=== PATIENT | male | born 1950 ===

== ENCOUNTER 2024-10-19 11:24 | Emergency (ER) | payer OTHER, SELFPAY ==
[2024-10-19 11:47] VITALS: BP 121/55; PULSE 66; RESP 16; TEMP 36.5; O2SAT 99; BMI 24.9
--- NOTE | 2024-10-19 11:48 | ED_ITS ---
HPI - General Adult General Chief complaint: General Medical Stated complaint: Headache, sore throat Time Seen by Provider: 10/19/24 12:39 Source: patient Mode of arrival: ambulatory Limitations: no limitations History of Present Illness ED Provider: Phill Manning HPI narrative: 74 yold male with pmh of HTN, CKD presents to the ED for swelling of lips for the past 4 days without any drooling, change in voice, chest pain, or shortness of breath. Patient states 1 weeks of sore throat. Patient states for the past 5 years every year he has one episode of swelling of lips and tongue that resolves after goinging to the ED. patient states being on lisniopril for the past 15 years. patient denies any fever or chills Related Data Previous Rx's ?Medication ?Instructions ?Recorded amlodipine 2.5 mg tablet 2.5 mg PO DAILY 20 days #20 tabs 10/19/24 diphenhydramine HCl 25 mg capsule 25 mg PO TID PRN all ergic reaction 10/19/24 (Benadryl) #15 caps epinephrine 0.3 mg/0.3 mL 0.3 mg (0.3 mL) IM Q15M PRN 10/19/24 injection, auto-injector (EpiPen) anaphylaxis #1 ea prednisone 20 mg tablet 40 mg (2 x 20 mg) PO DAILY 5 days 10/19/24 #10 tabs Allergies Allergy/AdvReac Type Severity Reaction Status Date / Time No Known Allergies Allergy Verified 10/19/24 11:53 Review of Systems 2 Review of Systems: swelling of lips Yes all other systems are reviewed and are negative PMFSH Social History Social History Smoked in Last 30 Days: No Use of substances other than those prescribed or required for medical reasons: No Advance Directives: No Advance Directives Information Provided: Yes Physical Exam ED Vital Signs: Vital Signs - 24 hr 10/19/24 11:47 10/19/24 17:02 10/19/24 17:03 Temperature 97.7 F 97.5 F 97.5 F Pulse Rate 66 65 65 Respiratory Rate 16 16 16 Blood Pressure 121/55 L 115/54 L 115/54 L Pulse Oximetry 99 98 98 Oxygen Delivery Method Room Air Room Air Room Air BMI result Body Mass Index 24.9 Const General: cooperative, healthy appearing, comfortable, no acute distress, well developed, alert, awake and Physically active Orientation/consciousness: patient oriented x3 [facility] Other: Negative for tongue or uvula swelling. negative for signs of thrush. Negative for floor swelling to indicate Driss's angina or salivary stone obstruction. Head: Yes normal to inspection, Yes No palpable skull fracture present, Yes normocephalic and Yes atraumatic Nose image: 2 1. positive for swelling without any lesions, tenderness, oral drooling, change in voice, trismus, tongue swelling, or tongue floor swelling. Patient states swelling has definitely decreased in comparison to 4 days ago. 2. positive for swelling without any lesions, tenderness, oral drooling, change in voice, trismus, tongue swelling, or tongue floor swelling. Patient states swelling has definitely decreased in comparison to 4 days ago. Eyes General: appearance normal, both eyes and all related structures Neck Neck: Yes normal visual inspection, Yes full ROM, Yes no lymphadenopathy, Yes no meningeal signs, Yes trachea midline, Yes supple, No anterior neck swelling, No positive Kernig's sign and No tender Chest Chest palpation & inspection: normal inspection of the chest and normal palpation of entire chest wall Breast/axilla palpation: normal palpation of the breasts Resp Effort & Inspection: normal respiratory effort and able to speak in complete sentences Auscultation: clear to auscultation bilaterally Cardio Jugular venous distension: no JVD Heart sounds: S1 normal heart sound present and S2 normal heart sound present GI Inspection: Yes normal to inspection Palpation (GI): Soft to palpation, not firm, nontender, no guarding and not rigid General: Yes no CVA tenderness Back/Spine/Pelvis Back: no CVA tenderness and No back tenderness Skin General skin exam: no rashes or lesions noted, elasticity normal and turgor normal Neuro General: patient oriented x3, gait normal, tone normal, moves all extremities, Normal light touch and pain sensation, no meningeal signs, no focal motor deficits, CN's II-XI intact bilaterally and normal sensation to monofilament Extrem General: Yes normal to inspection, Yes full ROM and Yes capillary refill normal Psych Appearance: grossly normal, well kempt and not disheveled Course Course Course Narrative: This is an RME: Additional HPI, ROS, PE not included below will be deferred to primary provider. RME assessment and note performed by: Pat Kruse PA-C This is a 17-iobd-wfu-male, with a hx of HTN on lisinopril, diabetes, and other medical problems (pt is a poor historian) who presents to the ER with a complaints of headache, lip swelling, tongue discoloration and sore throat x 1 week. He is speaking in full sentences under no acute distress. He denies any new medications. States that this has happened before in the past. Advised charge that he should be next to be brought back. Plan: Labs, viral swabs, strep swab, further ER eval needed Medications Administered Discontinued Medications Generic Name Dose Route Start Last Admin Trade Name Gavin PRN Reason Stop Dose Admin Diphenhydramine HCl 25 mg 10/19/24 14:50 10/19/24 15:23 Diphenhydramine Hcl 50 Mg/Ml Vial IVPUSH 10/19/24 14:51 25 mg ONCE ONE Administration Methylprednisolone Sodium Succinate 125 mg 10/19/24 15:00 10/19/24 15:23 Methylprednisolone Sod Succ 125 Mg/2 Ml Vial IVPUSH 10/19/24 15:01 125 mg ONCE ONE Administration Sodium Zirconium Cyclosilicate 10 gm 10/19/24 15:08 10/19/24 15:24 Sodium Zirconium Cyclosilicate 10 Gm Powd.Pack PO 10/19/24 15:09 10 gm ONCE ONE Administration Medical Decision Making Medical Decision Making MDM Narrative: 74-year-old male presents to ED for swelling of the upper and lower lips. Patient states improved throughout swelling over the past 4 days which she has had swelling. Patient is speaking in full sentences. negative for tongue swelling or uvula swelling. Negative for tongue discloration or thrush Negative for drooling, chest pain, neck swelling, trismus, or shortness of breath. Patient states this occurring at least once every year. Patient has been on lisinopril for long time but was never taken off by his primary care provider. Patient's provider is Zahira Ngo from [facility]. She was not able to be reached I spoke with the nurse at the Center who gave me patient's recent creatinine in July which was 1.66, BUN of 30, and GFR is 44. She states patient also follow up with Nima Moss MD from [facility] for his hypertension and diabetes. She states presently there were not available and will try to make them call the ED. I gave nurse who has [facility] ED to call back. Waiting to get paperwork from [facility] also. Patient is slightly hyperkalemic 5.6. We will do EKG and give lokelma 4:21pm: Swelling improved with Benadryl and Solu-Medrol. Case discussed with Dr. Pino who agreed with plan and recommends discontinue Lisinopril and discharge papers with amlodipine. Patient given copy of labs and EKG for for outpatient follow-up. Patient passed p.o. challenge. Providers from pharm D and [facility] never called back. Differential Diagnosis Differential Diagnoses: The differential diagnosis associated with the presentation includes (heredity angioedema, adverse drug reaction, allergic reaction) Admission/Observation Consideration of admission/observation: Escalation of care including admission/observation considered Lab Data [facility] Lab Attestation statement: I reviewed the patient's lab results. 10/19/24 12:19 10/19/24 12:19 Labs: Lab Results 10/19/24 10/19/24 Range/Units 12:19 14:38 WBC 9.6 (4.8-10.8) X10*3/uL RBC 5.05 (4.60-5.80) X10*6/uL Hgb 14.1 (14.0-18.0) g/dl Hct 44.8 (42.0-52.0) % MCV 88.7 (80.0-98.0) fL MCH 27.9 (27.0-33.0) pg MCHC 31.5 (31.0-36.0) g/dl RDW 14.5 (11.0-16.0) % Plt Count 219 (160-400) X10*3/uL MPV 10.6 (9.4-12.4) fL Immature Gran % (Auto) 0.4 (0.0-0.4) % Neut % (Auto) 63.5 (45-73) % Lymph % (Auto) 18.2 L (20-40) % [place] % (Auto) 13.2 H (2-11) % Eos % (Auto) 4.0 (0-4) % Baso % (Auto) 0.7 (0-2) % Lymph # (Auto) 1.8 (1.2-4.9) X10*3/uL [place] # (Auto) 1.3 H (0.1-1.2) X10*3/uL Eos # (Auto) 0.4 (0.0-0.4) X10*3/uL Baso # (Auto) 0.1 (0.0-0.2) X10*3/uL Abs Immat Gran (auto) 0.04 H (0.00-0.03) X10*3/uL Absolute Neuts (auto) 6.1 (2.0-8.3) x10*3/uL Absolute Nucleated RBC 0.000 (0.0-0.012) X10*3/uL Nucleated RBC % (auto) 0.0 (0.0-0.2) /100WBC Sodium 140 (135-145) mmol/L Potassium 5.6 H (3.3-5.1) mmol/L Chloride 107 (96-108) mmol/L Carbon Dioxide 26 (22-29) mmol/L Anion Gap 13 (12-20) BUN 42 H (9-16) mg/dL Creatinine 1.95 H (0.5-1.4) mg/dL Estim Creat Clear Calc 28.6 Estimated GFR 34 POC Glucose 105 (60-115) mg/dL Random Glucose 191 H (60-115) mg/dL Calcium 9.4 (8.4-10.2) mg/dL Magnesium 2.5 (1.6-2.6) mg/dL Total Bilirubin 0.4 (0.0-1.0) mg/dL Direct Bilirubin 0.2 (0.0-0.5) mg/dL AST 28 (5-37) U/L ALT 47 H (0-40) U/L Alkaline Phosphatase 89 (39-117) U/L Total Protein 7.3 (6.5-8.0) g/dL Albumin 4.4 (3.5-5.0) g/dL Influenza Type A (PCR) NEGATIVE (Negative) Influenza Type B (PCR) NEGATIVE (Negative) RSV RNA Qual (PCR) NEGATIVE (Negative) SARS-CoV-2 RNA (RT-PCR) NEGATIVE (Negative) S. pyogenes GrpA JARVIS Negative (Negative) Independent Interpretation I performed an independent interpretation of an: EKG (SInus rhythm with 1st degree AV block with bifasicular block) and CT Scan Radiology Impression Discussion of test interpretation with radiology: I have reviewed the radiologist's reading. Independent Historian Clinical information obtained from an independent historian. History obtained from or confirmed by: Spouse and Other (patient) Prescription Management I considered prescription management with: Other Discharge Plan Discharge Clinical Impression: Angioedema, Angioedema due to angiotensin converting enzyme inhibitor (KEVIN-I), Acute hyperkalemia Patient Disposition: Home, Self-Care Instructions: Potassium Content of Foods List (ED), Hyperkalemia (ED), Angioedema (ED) Additional Instructions: Recommend stop taking lisinopril. It has been known to cause swelling of the lips and tongue. You will be discharged with amlodipine. You will be discharged with Benadryl steroids and Pepcid. You will be given copy of labs for follow up with your primary care for your appointment on 10/21/24. Recommend calling them for earlier appointment. Return to the ED immediately for any chest pain, shortness of breath, drooling, change in voice, fever, chills, tongue swelling, neck swelling, lip swelling, sensation of throat closing, inability to tolerate solids/liquids or any other concerning symptoms. Prescriptions: New amlodipine 2.5 mg tablet 2.5 mg PO DAILY 20 Days Qty: 20 0RF diphenhydramine HCl [Benadryl] 25 mg capsule 25 mg PO TID PRN (Reason: allergic reaction) Qty: 15 0RF prednisone 20 mg tablet 40 mg PO DAILY 5 Days Qty: 10 0RF epinephrine [EpiPen] 0.3 mg/0.3 mL auto-injector 0.3 mg IM Q15M PRN (Reason: anaphylaxis) Qty: 1 0RF Rx Instructions: for 2 doses. inject into thigh Referrals: Zahira Ngo PA-C [Primary Care Provider, Internal Medicine] - 1 day Referral Note: Angioedema most likely caused by lisinopril KEVIN inhibitor Clinical Impression: Angioedema due to angiotensin converting enzyme inhibitor (KEVIN-I); Acute hyperkalemia Interventions: ED Discharge Assessment Last Done: 10/19/24 17:03 Discharge Date/Time: 10/19/24 17:03 Print Language: Pashto
[2024-10-19 12:23] LABS: MANUAL DIFF FLAG NO
[2024-10-19 12:26] LABS: Basophils Absolute Auto 0.1 X10*3/uL (0.0-0.2); Basophils Percent Auto 0.7 % (0-2); Eosinophils Absolute Auto 0.4 X10*3/uL (0.0-0.4); Hematocrit 44.8 % (42.0-52.0); Hemoglobin 14.1 g/dl (14.0-18.0); Imm Gran Abs Auto 0.04 X10*3/uL (0.00-0.03); Imm Gran Pct Auto 0.4 % (0.0-0.4); Lymphocytes Absolute Auto 1.8 X10*3/uL (1.2-4.9); Lymphocytes Percent Auto 18.2 % (20-40); Mean Corpuscular HGB Conc 31.5 g/dl (31.0-36.0); Mean Corpuscular Hemoglobin 27.9 pg (27.0-33.0); Mean Corpuscular Volume 88.7 fL (80.0-98.0); Mean Platelet Volume 10.6 fL (9.4-12.4); Monocytes Absolute Auto 1.3 X10*3/uL (0.1-1.2); Monocytes Percent Auto 13.2 % (2-11); Neutrophils Absolute Auto 6.1 x10*3/uL (2.0-8.3); Neutrophils Percent Auto 63.5 % (45-73); Platelet Count 219 X10*3/uL (160-400); Red Blood Count 5.05 X10*6/uL (4.60-5.80); Red Cell Distribution Width 14.5 % (11.0-16.0); White Blood Count 9.6 X10*3/uL (4.8-10.8)
[2024-10-19 12:39] LABS: Alanine Aminotransferase 47 U/L (0-40); Albumin Level 4.4 g/dL (3.5-5.0); Alkaline Phosphatase 89 U/L (39-117); Anion Gap 13 (12-20); Aspartate Amino Transferase 28 U/L (5-37); Bilirubin Direct 0.2 mg/dL (0.0-0.5); Bilirubin Total 0.4 mg/dL (0.0-1.0); Blood Urea Nitrogen 42 mg/dL (9-16); Calcium 9.4 mg/dL (8.4-10.2); Carbon Dioxide 26 mmol/L (22-29); Chloride 107 mmol/L (96-108); Creatinine Clr Calc Pharmacy 28.6; Estimated Glomerular Filt Rate 34; Glucose Random 191 mg/dL (60-115); Magnesium 2.5 mg/dL (1.6-2.6); Potassium 5.6 mmol/L (3.3-5.1); Sodium 140 mmol/L (135-145); Total Protein 7.3 g/dL (6.5-8.0)
[2024-10-19 12:41] LABS: IDNOW Serial# 55D5AD1C; Strep A Nucleic Acid Negative (Negative)
[2024-10-19 13:00] LABS: Influenza A PCR NEGATIVE (Negative); Influenza B PCR NEGATIVE (Negative); Resp Syncy Virus RNA Qual PCR NEGATIVE (Negative); SARS COV2 PCR INHOUSE NEGATIVE (Negative)
--- OUTSIDE RECORDS SUMMARY | 2024-10-19 14:40 | XMS_ITS | Continuity of Care Document ---
Author Organization [place] - [facility], [facility] [place] Address [address] [place] [address] Care Team Providers Care Brokerage Clerk Name Role Phone SONIA COLE Primary Care Provider Assessment Encounter Date Assessment Date Assessment LastModified by Organization Details LastModified Time 10/14/2024 10/14/2024 1. Lumbar spondylolisthesis (M43.16) - Grade 1 L4-L5 spondylolisthesis 2. Lumbar radiculopathy (M54.16) - Right-sided radicular symptoms with positive straight leg raise and dysesthesia 3. Lumbar spondylosis - Evident on imaging 4. Degenerative disc disease of the lumbar spine - Evident on imaging 5. Hip arthritis - Incidental finding on imaging 1. Medications: - I prescribed gabapentin 600mg TID for neuropathic pain, increased from previous ineffective dosing - I prescribed cyclobenzaprine 10mg BID for muscle spasm, replacing previously prescribed methocarbamol - Continue acetaminophen 1000mg TID for pain management 2. Physical Therapy: - Referral placed for physical therapy for lumbar spine rehabilitation 3. Imaging: - If no improvement in 6-8 weeks, will order MRI of the lumbar spine for further evaluation 4. Follow-up: - Return to clinic in 6-8 weeks to reassess symptoms and response to treatment - Sooner if symptoms worsen or new symptoms develop ICD-10: M43.16 - Spondylolisthesis, lumbar region ICD-10: M54.16 - Radiculopathy, lumbar region [email or web address] Not available 10/14/2024 18:00:00 Plan of Treatment Reminders Order Date Submit Date Provider Last Modified By Organization Details Last Modified Time Details Appointments RECHECK 15 2024 03:45P Danelle Joseph MD Not available Not available Not available Lab None recorded. Referral physical therapist referral - Evaluate & RxLumbar Stabiliza tion Program 2024 025 [email or web address] Not available 10/15/2024 08:50:20 Procedures None recorded. Surgeries None recorded. Imaging XR, lumbosacr al spine, 4 or more view - 325 4v lspine 2024 025 [email or web address] [facility], [address], [address], [place], [address], 10/14/2024 18:00:41 Medication Orders gabapenti n 600 mg tablet 2024 025 [email or web address] [facility][id number], [address] [place], [address], 10/14/2024 18:00:41 cyclobenz aprine 10 mg tablet 2024 025 [email or web address] [facility] #[id number], [address] [place], [address], 10/14/2024 18:00:41 Patient TargetsNo targets recorded. Patient Instructions Encounter Date Encounter Id Patient Instructions Last Modified By Organization Details Last Modified Time 10/14/2024 [id number] 1. Take medications as prescribed: - Gabapentin 600mg three times daily for nerve pain - Cyclobenzaprine 10mg twice daily for muscle spasms - Acetaminophen 1000mg three times daily as needed for pain 2. Attend physical therapy sessions as scheduled 3. Avoid activities that worsen pain 4. Use proper body mechanics when lifting or bending 5. Apply ice or heat to the lower back for 15-20 minutes as needed for pain relief 6. Return to clinic in 6-8 weeks for follow-up 7. Go to the emergency room if you experience sudden worsening of symptoms, loss of bladder or bowel control, or progressive weakness in the legs [email or web address] Not available 10/14/2024 17:58:08 74-year-old male with lumbar spondylolisthesis and right-sided radiculopathy [email or web address] Not available 10/14/2024 17:58:09 Reason for Referral Physical Therapist Referral for Lumbar spondylosis Evaluate & RxLumbar Stabilization Program Referring Physician: Cisco Joseph, Orthopedic Surgery, Encounter Date: 10/14/2024 Results Created Date Observation Date Name Description Value Unit Range Abnormal Flag Note LastModifiedBy Organization Detail LastModifiedTime 10/15/19 25 10/14/2024 XR, lumbo sacra l spine , 4 or more view [email or web address] ?Encry pted=s hAaTro YD8dLq bEUv6g %2BXZw aYqtaq 0bqfl% 2Fg9IQ a4ajBk vP9nXo QUaueC m3YtLR FvZlgJ JJ8mAn HZtai3 [id number] AC0Kla HuGWKW gKiQtr MwF INTERFACE [facility] [address], [place], [address], 10/14/2024 15:52:57 10/15/19 25 10/14/2024 XR, lumbo sacra l spine , 4 or more view [email or web address] ?Encry pted=s hAaTro YD8dLq bEUv6g %2BXZw aYqtaq 0bqfl% 2Fg9IQ a4ajBk vP9nXo QUaueC m3YtLR FvZlgJ JJ8mAn HZtai3 7n6147 AC0Kla HuGWKW gKiQtr MwF INTERFACE [facility] [address], [place], [address], 10/14/2024 15:52:59 Result Notes Documentation Provider Name and Address Organization Details Recorded Time Xr, Lumbosacral Spine, 4 Or More View : [email or web address] Encrypted=ziAdOosYD0fSohR Uv6g%4HSFgnQpajm5xiyy%2Fg 4PRi5xoViyC8bUfIKxehOp8Gm OHEiOgbBGD3zElLIpog54e592 1KY2LmjNzWMTQrOsJxsJbB Not Available [facility] 10/14/2024 15:52: 57 Xr, Lumbosacral Spine, 4 Or More View : [email or web address] Encrypted=ivBcEtgZU6wHbgL Uv6g%8YZUyvRjgji3cnif%2Fg 0POb6wpHbiN7bLnODaibNh8Po FZWkRemKKS8oUzTOrfw35d986 8XC6SfsQqYFIGwLiHvgOhC Not Available [facility] 10/14/2024 15:52: 59 Problems Name Problem SNOMED Code Status Onset Date Resolution Date Notes Provider Name and Address Organization Details Recorded Time Lumbar radiculopathy 964698186 Active 2024 Cisco Joseph MD [address], [place], [address], [facility] 18:00:02 Lumbar spondylosis 053055102 Active 2024 Cisco Joseph MD [address], [place], [address], [facility] 18:00:05 Problem Notes None recorded. Medical Equipment None Reported. Medications Name Sig Start Date Stop Date Status Note LastModified by Organization Details LastModified Time cyclobenzapr ine 10 mg tablet Take 1 tablet twice a day by oral route for 30 days. 2024 active Not Available Not Available Not Avai lable amoxicillin 500 mg capsule TAKE 1 CAPSULE BY MOUTH THREE TIMES A DAY FOR 7 DAYS active Not Available Not Available N ot Available methocarbamo l 500 mg tablet TAKE 1 TABLET BY MOUTH TWICE A DAY FOR 10 DAYS active Not Available Not Available No t Available atorvastatin 80 mg tablet TAKE 1 TABLET BY MOUTH EVERY DAY active Not Available Not Available No t Available gabapentin 600 mg tablet Take 1 tablet 3 times a day by oral route for 30 days. 2024 active Not Available Not Available Not Avai lable Vitamin C 500 mg tablet TAKE 1 TABLET BY MOUTH ONCE DAILY WITH IRON SUPPLEMENT active Not Available Not Available N ot Available prednisone 20 mg tablet TAKE 1 TABLET BY MOUTH 1 TIME EACH DAY FOR 5 DAYS. active Not Available Not Available No t Available isosorbide mononitrate ER 30 mg tablet,exten ded release 24 hr TAKE 1 TABLET BY MOUTH EVERY DAY active Not Available Not Available No t Available omeprazole 40 mg capsule,yoana yed release TAKE 1 CAPSULE BY MOUTH EVERY DAY IN THE MORNING BEFORE BREAKFAST active Not Available Not Available No t Available aspirin 81 mg tablet,delay ed release TAKE 1 TABLET BY MOUTH EVERY DAY active Not Available Not Available No t Available prednisolone acetate 1 % eye drops,suspen huong INSTILL 1 DROP INTO BOTH EYES FOUR TIMES A DAY USE FOR TWO WEEKS THEN STOP active Not Available Not Available No t Available gabapentin 800 mg tablet TAKE 1 TABLET BY MOUTH EVERY DAY active Not Available Not Available No t Available [employer] Ultra Test strips USE TO CHECK BLOOD SUGAR ONCE DAILY active Not Available Not Available No t Available erythromycin 5 mg/gram (0.5 %) eye ointment APPLY SMALL AMOUNT TO LEFT EYE 4 TIMES A DAY FOR 2 WEEKS active Not Available Not Available Not Available lidocaine 5 % topical patch PLACE 1 PATCH ONTO THE SKIN ONCE DAILY FOR 12 HOURS ON AND OFF active Not Available Not Available No t Available mirtazapine 45 mg tablet TAKE 1 TABLET BY MOUTH EVERYDAY AT BEDTIME active Not Available Not Available No t Available lisinopril 5 mg tablet TAKE 1 TABLET BY MOUTH EVERY DAY active Not Available Not Available No t Available gabapentin 100 mg capsule TAKE 3 CAPSULES (300 MG TOTAL) BY MOUTH 1 (ONE) TIME EACH DAY active Not Available Not Available No t Available metoprolol succinate ER 25 mg tablet,exten ded release 24 hr TAKE 1 TABLET BY MOUTH EVERY DAY active Not Available Not Available No t Available timolol maleate 0.5 % eye drops INSTILL 1 DROP INTO BOTH EYES TWICE A DAY active Not Available Not Available Not Available dorzolamide 2 % eye drops INSTILL 1 DROP INTO BOTH EYES TWICE A DAY active Not Available Not Available Not Available oxycodone 5 mg tablet TAKE 1/2 TAB (2.5MG) BY MOUTH EVERY 6 HOURS IF NEEDED FOR SEVERE PAIN. MAX DAILY AMOUNT: 10 MG active Not Available Not Available No t Available ezetimibe 10 mg tablet TAKE 1 TABLET BY MOUTH EVERYDAY AT BEDTIME active Not Available Not Available No t Available insulin aspart (U-100) 100 unit/mL (3 mL) subcutaneous pen USE WITH SLIDING SCALE 4-28 UNITS UP TO 84 UNITS DAILY active Not Available Not Available No t Available moxifloxacin 0.5 % eye drops INSTILL 1 DROP INTO LEFT EYE FOUR TIMES A DAY DIRECTED USAR POR WEI SEMANA active Not Available Not Available N ot Available escitalopram 5 mg tablet TAKE 1 TABLET BY MOUTH EVERY DAY IN THE MORNING active Not Available Not Available No t Available Lantus Solostar U-100 Insulin 100 unit/mL (3 mL) subcutaneous pen INJECT 60 UNITS INTO THE SKIN NIGHTLY AT BEDTIME active Not Available Not Available No t Available Farxiga 10 mg tablet TAKE 1 TABLET BY MOUTH EVERY DAY IN THE MORNING active Not Available Not Available No t Available BD Collette 2nd Gen Pen Needle 32 gauge x 5/32 USE 1 NEEDLE FOR EACH INJECTION 4 TIMES DAILY active Not Available Not Available Not Available OneTouch Ultra2 Meter USE ONCE A DAY active Not Available Not Available No t Available OneTouch Delica Plus Lancet 30 gauge USE ONCE A DAY active Not Available Not Available No t Available FreeStyle Yomaira 2 Sensor kit REPLACE EVERY 14 DAYS active Not Available Not Available No t Available Vitals None Recorded Social History None recorded. Functional Status None recorded. Mental Status None recorded. Family History Nothing Reported. Medical History No medical history recorded. Past Encounters Encounter ID Performer Location Encounter Start Date Encounter Closed Date Diagnosis/Indication Diagnosis SNOMED-CT Code Diagnosis ICD10 Code Diagnosis Note [id number] Cisco Joseph MD [facility] [place] [address] [place] [address] 10/14/2024 15:15:07 10/14/2024 18:00:21 Lumbar spondylosis 756710296 M47.816 Lumbar radiculopathy 128 009790 M54.16 Health Concerns Section Related Observation LastModified by Organization Detai ls LastModified Time None Recorded Concern Status LastModified by Organization Details LastModified Time None Recorded Payers Encounter Date Sequence Insurance Name Policy Number Policy Strickland Covered Member ID Strickland Member ID Guarantor Name 10/14/2024 1 [facility] - DOS ON OR AFTER 2022 - MEDICARE ADVANTAGE [place] (MEDICARE REPLACEMENT/ADV ANTAGE - PPO) Sean Beavers [id number] Sean Beavers Notes Date Note Type Note Provider Name and Address Organization Details Recorded Time 10/14/2024 text/html HPI: Mr. Sean Beavers is a 74-year-old male presenting with complaints of lower back pain radiating down his right leg. The patient reports the debilitating leg pain has been present for approximately one month, while the low back pain has been ongoing for approximately three years. He describes the pain as a pinching sensation that radiates down the lateral aspect of his right thigh, calf, and into his foot with associated tingling in his feet. The pain is exacerbated with movement. Patient required translation services during today's visit.Prior treatment: Patient reports visiting the emergency room yesterday (10/13/2024) where he received an injection for pain that provided minimal relief. He also had an ultrasound of his leg performed at that time. He was prescribed gabapentin 800mg daily and methocarbamol. Previously, he was prescribed gabapentin 300mg TID by his collar tacker, but reports it was ineffective for his pain. Patient has been taking acetaminophen without significant relief. History of diabetes Cisco Joseph MD [address] [place] [address] [address], [place], [address], [facility] 10/14/2024 18:00:20
[2024-10-19 14:41] LABS: Glucose, Whole Blood 105 mg/dL (60-115)
--- NOTE | 2024-10-19 15:08 | ECG_ITS ---
Test Reason : HYPERKALEMIA Blood Pressure : */* mmHG Vent. Rate : 61 BPM Atrial Rate : 61 BPM P-R Int : 172 ms QRS Dur : 94 ms QT Int : 380 ms P-R-T Axes : 59 -35 80 degrees QTcB Int : 382 ms Normal sinus rhythm Left axis deviation Abnormal ECG No previous ECGs available Referred By: Phill Manning Electronically Signed By: HIRAL BANEGAS
[2024-10-19] MEDS: methylPREDNISolone Sod Succ 125 MG/2 ML VIAL IVPUSH (15:23)
[2024-10-19] MEDS: diphenhydrAMINE HCL 50 MG/ML VIAL 25 MG IVPUSH (15:23)
[2024-10-19] MEDS: Sodium Zirconium Cyclosilicate 10 GM POWD.PACK PO (15:24)
[2024-10-19 17:02] VITALS: BP 115/54; PULSE 65; RESP 16; TEMP 36.4; O2SAT 98
[2024-10-19 17:03] VITALS: BP 115/54; PULSE 65; RESP 16; TEMP 36.4; O2SAT 98
== END 2024-10-19 17:03 | disposition home or self-care (01) ==
PROVIDERS: Physician Assistant Medical; Emergency Provider Emergency Medicine; PCP Physician Assistant
DX: E87.5 Hyperkalemia (principal); R51.9 Headache, unspecified; T78.3XXA Angioneurotic edema, initial encounter; J02.9 Acute pharyngitis, unspecified; K13.0 Diseases of lips; R94.31 Abnormal electrocardiogram [ECG] [EKG]; I10 Essential (primary) hypertension; X58.XXXA Exposure to other specified factors, initial encounter; Z03.818 Encounter for observation for suspected exposure to other biological agents ruled out; Z79.899 Other long term (current) drug therapy
CPT/HCPCS: 0241U; 36415; 80048; 80076; 82947; 83735; 85025; 87651; 93005; 96374; 99284; J1200; J2919

== ENCOUNTER → 2024-10-19 15:08 | Outpatient (BNV) | payer OTHER, SELFPAY | PROVIDERS: Emergency Provider Emergency Medicine; PCP Physician Assistant; Visit Provider Internal Medicine | DX: R94.31 Abnormal electrocardiogram [ECG] [EKG] (principal); E87.5 Hyperkalemia | CPT/HCPCS: 93010 ==

== ENCOUNTER 2025-01-04 17:29 | Emergency (ER) | payer OTHER, SELFPAY ==
--- OUTSIDE RECORDS SUMMARY | 2024-12-30 19:14 | XMS_ITS | Encounter Summary ---
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 Role Phone NgoZahira Primary Care Provider Reason for Visit * Reason Comments Joint Swelling Right, x3 days Knee Pain X 3 days, pt denies injury Encounter Details Date Type Department Care Team (Late st Contact Info) Description 12/30/2024 7:14 PM EDT - 12/30/2024 11:14 PM EDT Emergency [facility] Emergency [address] [place] [phone] Isaak Walton MD [address] [place] [phone] Vinay Graham MD [address] [place] [address] Knee effusion, right (Primary Dx); Cellulitis of knee, right Discharge Disposition: Home or Self Care Social History Tobacco Use Types Packs/Day Years Used Date Smoking Tobacco: Former Cigarettes Q uit: 06/09/2016 Smokeless Tobacco: Never Alcohol Use Standard Drinks/Week Comments No 0 (1 standard drink = 0.6 oz pur e alcohol) Sex and Gender Information Value Date Recorded Sex Assigned at Male 05/21/2024 3:13 PM EST Legal Sex Male 5:05 AM EST Gender Identity Male 05/21/2024 3:13 PM EST Sexual Orientation Straight 05/21/2024 3: 13 PM EST documented as of this encounter Last Filed Vital Signs Vital Sign Reading Time Taken Comments Blood Pressure 144/57 12/30/2024 6:19 PM EDT Pulse 73 12/30/2024 6:19 PM EDT Temperature 36.7 C (98.1 F) 12/30/2024 6:19 PM EDT Respiratory Rate 18 12/30/2024 6:19 PM EDT Oxygen Saturation 98% 12/30/2024 6:19 PM EDT Inhaled Oxygen Concentration - - Weight 63.5 kg (140 lb) 12/30/2024 6:19 PM EDT Height 162.6 cm (5' 4 ) 12/30/2024 6:19 PM EDT Body Mass Index 24.03 12/30/2024 6:19 PM EDT documented in this encounter Functional Status * Are you deaf or do you have serious difficulty hearing? Answer Date of Assessment Author No 11/11/2024 12:16 PM EDT Carmenza Sal RN * Are you blind or do you have serious difficulty seeing, even when wearing glasses? Answer Date of Assessment Author No 11/11/2024 12:16 PM EDT Carmenza Sal RN * Do you have serious difficulty walking or climbing stairs? Answer Date of Assessment Author No 11/11/2024 12:16 PM EDT Carmenza Sal RN * Do you have serious difficulty dressing or bathing? Answer Date of Assessment Author No 11/11/2024 12:16 PM EDT Carmenza Sal RN * Because of a physical, mental, or emotional condition, do you have serious difficulty doing errandsalone such as visiting the doctor? Answer Date of Assessment Author No 11/11/2024 12:16 PM EDT Carmenza Sal RN documented as of this encounter Mental Status * Because of a physical, mental, or emotional condition, do you have serious difficulty concentrating, remembering, or making decisions? (5 years old or older) Answer Entry Date Author No 11/11/2024 12:16 PM EDT Carmenza Sal RN documented in this encounter Discharge Instructions * Discharge Instructions* Vinay Graham MD - 12/30/2024 10:05 PM EDT Your fluid analysis did not show evidence of infection or gout in your knee joint. You will take an antibiotic called Keflex 4 times a day for 7 days to treat a superficial skin infection called cellulitis over your knee. You can take Tylenol 1000 mg every 6 hours as needed for pain. You can ice and elevate your knee aswell to help with pain and swelling. You can buy an [id number] knee brace as well. Follow-up with orthopedics for wound recheck and to ensure you are responding to antibiotics. You should also follow-up with your primary care doctor. Ruiz an??lisis de fluidos no mostr?? evidencia de infecci??n ni gota en la articulaci??n de la rodilla. Farhan?? un antibi??shady llamado Keflex 4 veces al d??a kasey 7 d??as para tratar rosaura infecci??n cut??krissy superficial llamada celulitis en la rodilla. Puede farhan Tylenol 1000 mg cada 6 horas seg??n sea necesario para el dolor. Tambi??n puede aplicarhielo y elevar la rodilla para aliviar el dolor y la inflamaci??n. Tambi??n puede comprar rsoaura rodillera de venta roseline. Acuda a un seguimiento con un traumat??logo para revisar la herida y asegurarse de que est?? respondiendo a los antibi??ticos. Tambi??n debe realizar un seguimiento con ruiz m??dico de cabecera. Regrese si presenta s??ntomas nuevos o que empeoran, sanjana la propagaci??n de la erupci??n cut??krissy,fiebre o empeoramiento del dolor. Return with any new or worsening symptoms including spread of rash, fevers, worsening pain. * Attachments The following attachments cannot be sent through Care Everywhere. * Cellulitis (Citizen Of [place]) documented in this encounter Medications at Time of Discharge amLODIPine (NORVASC) 2.5 mg tablet Take 1 tablet (2.5 mg total) by mouth 1 (one) time each day. ascorbic acid (VITAMIN C) 500 mg tablet Take 1 tablet (500 mg total) by mouth 1 (one) time each day. aspirin 81 mg chewable tablet Take 1 Tab by mouth daily. atorvastatin (LIPITOR) 80 mg tablet Take 1 tablet by mouth daily. 03/06/2021 bisacodyL (DULCOLAX) 5 mg EC tablet Take 2 tablets by mouth right before beginning bowel prep. See instructions provided by the office 2 tablet 12/30/2024 cephalexin (KEFLEX) 500 mg capsule Take 1 capsule (500 mg total) by mouth 4 (four) times a day for 7 days. 28 each 12/30/2024 dorzolamide (TRUSOPT) 2 % ophthalmic solution Administer 1 drop into both eyes 2 (two) times a day. escitalopram (LEXAPRO) 5 mg tablet Take 5 mg by mouth daily. ezetimibe (ZETIA) 10 mg tablet TAKE 1 TABLET BY MOUTH EVERYDAY AT BEDTIME 90 tablet 2 12/22/2024 Farxiga 10 mg tablet Take 1 tablet (10 mg total) by mouth 1 (one) time each day in the morning. 08/11/2024 ferrous sulfate 325 mg (65 mg elemental iron) tablet Take 1 tablet (325 mg total) by mouth 1 (one) time each day. gabapentin (NEURONTIN) 800 mg tablet Take 1 tablet (800 mg total) by mouth daily. 08/04/2024 hydrALAZINE (APRESOLINE) 50 mg tablet Take 1 tablet by mouth daily. 03/06/2021 insulin aspart (NovoLOG FlexPen) 100 unit/mL (3 mL) injection pen USE WITH SLIDING SCALE 4-28 UNITS UP TO 84 UNITS DAILY insulin glargine (LANTUS) 100 unit/mL injection Inject 60 Units as directed daily. insulin lispro (HumaLOG) 100 UNIT/ML patient supplied pump Inject into the skin. isosorbide mononitrate (IMDUR) 30 mg 24 hr tabletIndications :Atherosclerotic heart disease of [place] coronary artery without angina pectoris TAKE 1 TABLET BY MOUTH EVERY DAY 90 tablet 1 12/07/2024 lidocaine (LIDODERM) 5 % patch Apply 1 patch topically 1 (one) time each day. 11/22/2023 linaGLIPtin 5 mg tablet Take 1 Tablet by mouth daily. lisinopriL (PRINIVIL,ZESTRIL ) 5 mg tablet TAKE 1 TABLET BY MOUTH EVERY DAY 12/19/2023 metoprolol succinate (TOPROL-XL) 25 mg 24 hr tablet Take 1 tablet (25 mg total) by mouth 1 (one) time each day. Do not crush or chew. metoprolol tartrate (LOPRESSOR) 25 mg tablet Take 0.5 Tablets by mouth 2 times daily. 01/11/2022 mirabegron (MYRBETRIQ) 50 mg tablet extended release 24 hr 24 hr tablet Take 1 Tablet by mouth daily. mirtazapine (REMERON) 45 mg tablet Take 45 mg by mouth at bedtime. nitroglycerin (NITROSTAT) 0.[address] 1 Tablet under the tongue every 5 minutes as needed for Chest pain. 01/28/2023 omega-3 acid ethyl esters (LOVAZA) 1 gram capsule Take by mouth daily. omeprazole (PriLOSEC) [address] capsule Take 1 capsule (40 mg total) by mouth 1 (one) time each day. Do not crush or chew. oxyCODONE (ROXICODONE) 5 mg immediate release tabletIndications :Pain of right lower extremity Take 0.5 tablets (2.5 mg total) by mouth every 6 (six) hours if needed for severe pain. Max Daily Amount: 10 mg 15 tablet 08/07/2024 polyethylene glycol (Golytely) 236-22.74-6.74 -5.86 gram solution Take 4L by mouth once for one dose. May substitue any PEG. Starting at 2PM the day before your procedure drink 1 8oz glasses at your own pace until you complete half of the gallon. Finish 2nd half of the gallon at 8PM. 4000 mL 12/30/2024 polyethylene glycol (MIRALAX) 17 gram packet Take 1 Package by mouth daily. tamsulosin (FLOMAX) 0.4 mg 24 hr capsule Take 1 capsule (0.4 mg total) by mouth 1 (one) time each day. 05/03/2021 terbinafine (LamISIL) 1 % cream Apply topically 2 times daily. 01/15/2024 timolol (TIMOPTIC) 0.5 % ophthalmic solution Administer 1 drop into both eyes 2 (two) times a day. documented as of this encounter Ordered Prescriptions Prescription Sig Dispense Quantity Refills Last Filled Start Date End Date cephalexin (KEFLEX) 500 mg capsule Take 1 capsule (500 mg total) by mouth 4 (four) times a day for 7 days. 28 each 12/30/2024 documented in this encounter Discharge Disposition Disposition Code Departure Means Destination Comment s Home or Self Care documented in this encounter Progress Notes * Vinay Graham MD - 12/30/2024 10:29 PM EDT Sean Beavers This patient's care was signed out to me by the offgoing provider. Please see her/his note for further details regarding initial presentation, history of present illness, physical exam, and medical decision making. At time of signout, the following was pending: Right knee synovial fluid studies and crystal analysis ED Course as of 12/30/242229Dec 30, 20242034 Patient signed out to me at this time pending synovial fluid studies. [CL] 2044 XR Knee 4+ Views Right No acute fracture or dislocation as interpreted by ED provider [CL] 2119 Glucose, Fluid: 6 [CL] 2134 LD, Fluid: 66 [CL] 2202 Crystals, Fluid: No diagnostic crystals seen [CL] 2203 Body Fluid Total Nucleated Cells: 433 [CL] 2204 Synovial fluid analysis not consistent with septic joints. Crystal analysis also negative. We will discharge with a knee cellulitis on Keflex. Close PCP and orthopedic follow-up advised. Strict return precautions given. [CL] ED Course User Index [CL] Vinay Graham MD Clinical Impressions as of 12/30/242229 Knee effusion, right Cellulitis of knee, right XR Knee 4+ Views Right (Results Pending) Labs Reviewed BASIC METABOLIC PANEL - Abnormal Result Value Sodium 140 Potassium 4.2 Chloride 104 CO2 30 Anion Gap 6 Glucose 173 (*) BUN 31 (*) Creatinine 1.85 (*) eGFR 38 (*) BUN/Creatinine Ratio 16.8 Calcium 9.5 CBC WITH AUTO DIFFERENTIAL - Abnormal WBC 9.3 RBC 5.00 Hemoglobin 13.7 Hematocrit 43.5 MCV 86.5 MCH 27.2 MCHC 31.5 (*) RDW 13.8 Platelets 224 MPV 10.7 NRBC 0.0 NRBC Absolute 0.00 Neutrophils Relative 63.2 Lymphocytes Relative 21.9 Monocytes Relative 11.4 Eosinophils Relative 2.7 Basophils Relative 0.5 Immature Granulocytes Relative 0.3 Neutrophils Absolute 5.89 Lymphocytes Absolute 2.04 Monocytes Absolute 1.06 (*) Eosinophils Absolute 0.25 Basophils Absolute 0.05 Immature Granulocytes Absolute 0.03 C-REACTIVE PROTEIN - Abnormal C-Reactive Protein 1.09 (*) SEDIMENTATION RATE - Abnormal Sed Rate 36 (*) URIC ACID - Normal Uric Acid 5.9 CRYSTAL IDENTIFICATION, BODY FLUID - Normal Crystals, Fluid No diagnostic crystals seen CULTURE BODY FLUID WITH GRAM STAIN CBC AND DIFFERENTIAL Narrative: The following orders were created for panel order CBC and differential. Procedure Abnormality Status --------- ------ CBC auto differential[[id number]] Abnormal Final result Please view results for these tests on the individual orders. CELL COUNT WITH REFLEX DIFFERENTIAL, BODY FLUID Body Fluid Total Nucleated Cells 433 Body Fluid RBC 121,000 Body Fluid Color Red Body Fluid Clarity Bloody Body Fluid Source Knee, Right Narrative: No reference ranges have been established for body fluids. Clinical correlation recommended. GLUCOSE, BODY FLUID Glucose, Fluid 6 Narrative: No reference ranges have been established for body fluids. Clinical correlation recommended. LACTATE DEHYDROGENASE, BODY FLUID LD, Fluid 66 Narrative: No reference ranges have been established for body fluids. Clinical correlation recommended. DIFFERENTIAL BODY FLUID Fluid Neutrophils % 28 Fluid Lymphocytes % 46 Fluid Monocytes/Macrophages 25 Fluid Eosinophils % 1 Fluid Basophils % 0 Fluid Other Cells % 0 Narrative: No reference ranges have been established for body fluids. Clinical correlation recommended. Clinical Impression(s): Final diagnoses: [M25.461] Knee effusion, right [L03.115] Cellulitis of knee, right Discharge Previous Medications AMLODIPINE (NORVASC) 2.5 MG TABLET Take 1 tablet (2.5 mg total) by mouth 1 (one) time each day. ASCORBIC ACID (VITAMIN C) 500 MG TABLET Take 1 tablet (500 mg total) by mouth 1 (one) time each day. ASPIRIN 81 MG CHEWABLE TABLET Take 1 Tab by mouth daily. ATORVASTATIN (LIPITOR) 80 MG TABLET Take 1 tablet by mouth daily. BISACODYL (DULCOLAX) 5 MG EC TABLET Take 2 tablets by mouth right before beginning bowel prep. See instructions provided by the office DORZOLAMIDE (TRUSOPT) 2 % OPHTHALMIC SOLUTION Administer 1 drop into both eyes 2 (two) times a day. ESCITALOPRAM (LEXAPRO) 5 MG TABLET Take 5 mg by mouth daily. EZETIMIBE (ZETIA) 10 MG TABLET TAKE 1 TABLET BY MOUTH EVERYDAY AT BEDTIME FARXIGA 10 MG TABLET Take 1 tablet (10 mg total) by mouth 1 (one) time each day in the morning. FERROUS SULFATE 325 MG (65 MG ELEMENTAL IRON) TABLET Take 1 tablet (325 mg total) by mouth 1 (one) time each day. GABAPENTIN (NEURONTIN) 800 MG TABLET Take 1 tablet (800 mg total) by mouth daily. HYDRALAZINE (APRESOLINE) 50 MG TABLET Take 1 tablet by mouth daily. INSULIN ASPART (NOVOLOG FLEXPEN) 100 UNIT/ML (3 ML) INJECTION PEN USE WITH SLIDING SCALE 4-28 UNITSUP TO 84 UNITS DAILY INSULIN GLARGINE (LANTUS) 100 UNIT/ML INJECTION Inject 60 Units as directed daily. INSULIN LISPRO (HUMALOG) 100 UNIT/ML PATIENT SUPPLIED PUMP Inject into the skin. ISOSORBIDE MONONITRATE (IMDUR) 30 MG 24 HR TABLET TAKE 1 TABLET BY MOUTH EVERY DAY LIDOCAINE (LIDODERM) 5 % PATCH Apply 1 patch topically 1 (one) time each day. LINAGLIPTIN 5 MG TABLET Take 1 Tablet by mouth daily. LISINOPRIL (PRINIVIL,ZESTRIL) 5 MG TABLET TAKE 1 TABLET BY MOUTH EVERY DAY METHOCARBAMOL (ROBAXIN) 500 MG TABLET Take 1 tablet (500 mg total) by mouth 2 (two) times a day for10 days. METOPROLOL SUCCINATE (TOPROL-XL) 25 MG 24 HR TABLET Take 1 tablet (25 mg total) by mouth 1 (one) time each day. Do not crush or chew. METOPROLOL TARTRATE (LOPRESSOR) 25 MG TABLET Take 0.5 Tablets by mouth 2 times daily. MIRABEGRON (MYRBETRIQ) 50 MG TABLET EXTENDED RELEASE 24 HR 24 HR TABLET Take 1 Tablet by mouth daily. MIRTAZAPINE (REMERON) 45 MG TABLET Take 45 mg by mouth at bedtime. NITROGLYCERIN (NITROSTAT) 0.[address] 1 Tablet under the tongue every 5 minutes as needed for Chest pain. OMEGA-3 ACID ETHYL ESTERS (LOVAZA) 1 GRAM CAPSULE Take by mouth daily. OMEPRAZOLE (PRILOSEC) [address] CAPSULE Take 1 capsule (40 mg total) by mouth 1 (one) time each day.Do not crush or chew. OXYCODONE (ROXICODONE) 5 MG IMMEDIATE RELEASE TABLET Take 0.5 tablets (2.5 mg total) by mouth every6 (six) hours if needed for severe pain. Max Daily Amount: 10 mg POLYETHYLENE GLYCOL (GOLYTELY) 236-22.74-6.74 -5.86 GRAM SOLUTION Take 4L by mouth once for one dose. May substitue any PEG. Starting at 2PM the day before your procedure drink 1 8oz glasses at your own pace until you complete half of the gallon. Finish 2nd half of the gallon at 8PM. POLYETHYLENE GLYCOL (MIRALAX) 17 GRAM PACKET Take 1 Package by mouth daily. TAMSULOSIN (FLOMAX) 0.4 MG 24 HR CAPSULE Take 1 capsule (0.4 mg total) by mouth 1 (one) time each day. TERBINAFINE (LAMISIL) 1 % CREAM Apply topically 2 times daily. TIMOLOL (TIMOPTIC) 0.5 % OPHTHALMIC SOLUTION Administer 1 drop into both eyes 2 (two) times a day. ED Medication Administration from 12/30/2024 1804 to 12/30/20240 Date/Time Order Dose Route Action Action by 12/30/20242036 EDT lidocaine (PF) (XYLOCAINE-MPF) 1 % injection 10 mL 10 mL infiltration Given by Danelle Medrano * Moncho Paz RN - 12/30/2024 6:14 PM EDT Pt comes in with c/o right knee swelling x 4 days; pt denies known injury to the area. Pt states hehas difficulty straightening his leg and area is warm to the touch. Pt reports pain also radiates down his calf. Pts intermittent n/v as well. Hx of DM. * Isaak Walton MD - 12/30/2024 6:04 PM EDT HPI Chief Complaint Patient presents with Joint Swelling Right, x3 days Knee Pain X 3 days, pt denies injury 74-year-old male with a history of anemia, diabetes mellitus, hyperlipidemia, hypertension, and back pain presents with three to four days of right knee swelling and pain without preceding injury. Hereports difficulty straightening the leg, warmth over the affected area, and pain radiating down the calf. Symptoms have been accompanied by intermittent nausea and vomiting. He denies any trauma to the joint. History provided by: Patient Daren Coma Scale Score: 15 Patient History Past Medical History: Diagnosis Date Anemia Back pain Diabetes mellitus ([facility] V24, [facility] V28) HLD (hyperlipidemia) Hypertension History reviewed. No pertinent surgical history. Family History Problem Relation Name Age of Onset Heart attack Father Heart attack Sister Social History Tobacco Use Smoking status: Former Current packs/day: 0.00 Types: Cigarettes Quit date: 06/09/2016 Years since quittin.5 Smokeless tobacco: Never Substance Use Topics Alcohol use: No Drug use: No Review of Systems Review of Systems Physical Exam ED Triage Vitals [12/30/24 1819] Temp Heart Rate Resp BP 36.7 ??C (98.1 ??F) 73 18 (!) 144/57 SpO2 Temp Source Heart Rate Source Patient Position 98 % Oral -- Sitting BP Location FiO2 (%) Right arm -- Physical Exam Vitals and nursing note reviewed. Constitutional: Appearance: Normal appearance. HENT: Head: Normocephalic and atraumatic. Nose: Nose normal. Mouth/Throat: Mouth: Mucous membranes are moist. Eyes: Extraocular Movements: Extraocular movements intact. Conjunctiva/sclera: Conjunctivae normal. Pupils: Pupils are equal, round, and reactive to light. Cardiovascular: Rate and Rhythm: Normal rate. Pulses: Normal pulses. Pulmonary: Effort: Pulmonary effort is normal. Abdominal: General: Abdomen is flat. Palpations: Abdomen is soft. Musculoskeletal: Cervical back: Normal range of motion. Right knee: Swelling and erythema present. Decreased range of motion. Skin: General: Skin is warm and dry. Capillary Refill: Capillary refill takes less than 2 seconds. Neurological: General: No focal deficit present. Mental Status: He is alert. Mental status is at baseline. Psychiatric: Mood and Affect: Mood normal. Behavior: Behavior normal. ED Course & MDM ED Course as of 12/31/241649Dec 30, 20242034 Patient signed out to me at this time pending synovial fluid studies. [CL] 2044 XR Knee 4+ Views Right No acute fracture or dislocation as interpreted by ED provider [CL] 2119 Glucose, Fluid: 6 [CL] 2134 LD, Fluid: 66 [CL] 2202 Crystals, Fluid: No diagnostic crystals seen [CL] 2203 Body Fluid Total Nucleated Cells: 433 [CL] 2204 Synovial fluid analysis not consistent with septic joints. Crystal analysis also negative. We will discharge with a knee cellulitis on Keflex. Close PCP and orthopedic follow-up advised. Strict return precautions given. [CL] ED Course User Index [CL] Vinay Graham MD Clinical Impressions as of 12/31/241649 Knee effusion, right Cellulitis of knee, right Medical Decision Making 74 year old male, evaluated for a three day history of right knee pain, swelling and redness. Patient denies any acute traumatic injury to the area. On examination the right knee is warm to the touch, red, swollen. Labs are borderline suggestive of possible septic joint. Therefore I did consent the patient to a joint arthrocentesis. Body fluid labs are pending at this time. Plan for sign out to Dr. Graham for further follow-up and care. Procedures Isaak Walton MD 12/30/241926 Isaak Walton MD 12/30/242040 Isaak Walton MD 12/31/241649 documented in this encounter Plan of Treatment Upcoming Encounters Date Type Department Care Team (Late st Contact Info) Description 01/13/2025 12:00 PM EDT Appointment [facility] [address] [place] [id number] Darius Stone MD [address] [place] [phone] documented as of this encounter Procedures Procedure Name Priority Date/Time Associated Diagnosis Comments LACTATE DEHYDROGENASE, BODY FLUID STAT 12/30/2024 8:52 PM EDT CELL COUNT WITH REFLEX DIFFERENTIAL, BODY FLUID STAT 12/30/2024 8:39 PM EDT CULTURE BODY FLUID WITH GRAM STAIN STAT 12/30/2024 8:39 PM EDT DIFFERENTIAL BODY FLUID STAT 12/30/2024 8:39 PM EDT CRYSTAL IDENTIFICATION, BODY FLUID STAT 12/30/2024 8:39 PM EDT GLUCOSE, BODY FLUID STAT 12/30/2024 8 :39 PM EDT XR KNEE 4+ VIEWS RIGHT STAT 12/30/2024 7:51 PM EDT CBC WITH AUTO DIFFERENTIAL STAT 12/30/2024 6:29 PM EDT SEDIMENTATION RATE STAT Add-on 12/30/2024 6: 29 PM EDT CBC AND DIFFERENTIAL STAT 12/30/2024 6:29 PM EDT C-REACTIVE PROTEIN STAT Add-on 12/30/2024 6 :29 PM EDT URIC ACID STAT Add-on 12/30/2024 6:29 PM EDT BASIC METABOLIC PANEL STAT 12/30/2024 6:29 PM EDT documented in this encounter Results * Lactate dehydrogenase, body fluid (12/30/2024 8:52 PM EDT) LD, Fluid 66 See Comment unit/L LAB CHEMISTRY METHOD 12/30/2024 9:27 PM EDT [facility] Unspecified Body Fluid Structure of right knee region / Unknown Non-blood Collection / Unknown 12/30/2024 8:52 PM EDT 12/30/2024 8:53 PM EDT Narrative [facility] - 12/30/2024 9:27 PM EDT No reference ranges have been established for body fluids. Clinical correlation recommended. Isaak Walton MD LAB BODY FLUIDS AND STOOLS ORDER FATMATA Final Result Performing Organization Address City/[facility]/ZIP Co de Phone Number [facility] [address] [place] [address], [place] [phone] * Differential body fluid (12/30/2024 8:39 PM EDT) Fluid Neutrophils % 28 % 12/30/2024 9:53 PM EDT [facility] Fluid Lymphocytes % 46 % 12/30/2024 9:53 PM EDT [facility] Fluid Monocytes/Macrop hages 25 % 12/30/2024 9:53 PM EDT [facility] Fluid Eosinophils % 1 % 12/30/2024 9:53 PM EDT [facility] Fluid Basophils % 0 % 12/30/2024 9:53 PM EDT [facility] Fluid Other Cells % 0 % 12/30/2024 9:53 PM EDT [facility] Aspirate Structure of right knee region / Unknown Non-blood Collection / Unknown 12/30/2024 8:39 PM EDT 12/30/2024 8:44 PM EDT Narrative [facility] - 12/30/2024 9:53 PM EDT No reference ranges have been established for body fluids. Clinical correlation recommended. us Isaak Walton MD LAB BODY FLUIDS AND STOOLS ORDER FATMATA Final Result Performing Organization Address City/[facility]/ZIP Co de Phone Number [facility] [address] [place] [address], [place] [phone] * Glucose, body fluid (12/30/2024 8:39 PM EDT) Glucose, Fluid 6 See Comment mg/dL LAB CHEMISTRY METHOD 12/30/2024 9:07 PM EDT [facility] Drainage Structure of right knee region / Unknown 12/30/2024 8:39 PM EDT 12/30/2024 8:44 PM EDT Narrative [facility] - 12/30/2024 9:07 PM EDT No reference ranges have been established for body fluids. Clinical correlation recommended. us Isaak Walton MD LAB BODY FLUIDS AND STOOLS ORDER FATMATA Final Result Performing Organization Address [facility]/ZIP Co de Phone Number [facility] [address] [place] [address], [place] [phone] * Culture body fluid with gram stain (12/30/2024 8:39 PM EDT) Fluid Culture No growth at 3 days LAB MICROBIOLOGY METHOD 01/02/2025 12:04 PM EDT [facility] Gram Stain Result Few Polymorphonuclear leukocytes 01/02/2025 12:04 PM EDT [facility] Gram Stain Result No epithelial cells seen 01/02/2025 12:04 PM EDT [facility] Gram Stain Result No organisms seen 01/02/2025 12:04 PM EDT [facility] Fine Needle Aspirate Structure of right knee region / Unknown Non-blood Collection / Unknown 12/30/2024 8:39 PM EDT 12/30/2024 8:44 PM EDT us Isaak Walton MD LAB MICROBIOLOGY - GENERAL ORDER FATMATA Final Result Performing Organization Address City/[facility]/ZIP Co de Phone Number [facility] [address] [place] [address], [place] [phone] * Body fluid crystal (12/30/2024 8:39 PM EDT) Crystals, Fluid No diagnostic crystals seen No diagnostic crystals seen 12/30/2024 10:01 PM EDT [facility] Synovial Fluid Structure of right knee region / Unknown Non-blood Collection / Unknown 12/30/2024 8:39 PM EDT 12/30/2024 8:44 PM EDT Isaak Walton MD LAB BODY FLUIDS AND STOOLS ORDER FATMATA Final Result [facility] [address] [place] [address], [place] [phone] * Cell count with reflex differential, body fluid (12/30/2024 8:39 PM EDT) Body Fluid Total Nucleated Cells 433 /mm3 LAB HEMETOLOGY METHOD 12/30/2024 9:53 PM EDT [facility] Body Fluid RBC 121,000 /mm3 LAB HEMETOLOGY METHOD 12/30/2024 9:53 PM EDT [facility] Body Fluid Color Red 12/30/2024 9:53 PM EDT [facility] Body Fluid Clarity Bloody 12/30/2024 9:53 PM EDT [facility] Body Fluid Source Knee, Right 12/30/2024 9:53 PM EDT [facility] Aspirate Structure of right knee region / Unknown Non-blood Collection / Unknown 12/30/2024 8:39 PM EDT 12/30/2024 8:44 PM EDT Narrative [facility] - 12/30/2024 9:53 PM EDT No reference ranges have been established for body fluids. Clinical correlation recommended. us Isaak Walton MD LAB BODY FLUIDS AND STOOLS ORDER FATMATA Final Result [facility] [address] [place] [address], [place] [phone] * XR Knee 4+ Views Right (12/30/2024 7:51 PM EDT) Anatomical Region Laterality Modality Lower Extremities, Knee Right Radiogra phic Imaging 12/31/2024 8:45 AM EDT Impressions 12/31/2024 8:45 AM EDT FINDINGS/IMPRESSION: No acute fracture or dislocation. Joint spaces are preserved. Quadriceps and patellar enthesophytes. Prepatellar soft tissue swelling. No joint effusion. -------- FINAL REPORT -------- Dictated By: ARNOLD LEW Dictated Date: 12/31/2024 08:45 ET Assigned Physician: ARNOLD LEW Reviewed and Electronically Signed By: ARNOLD LEW Signed Date: 12/31/2024 08:45 ET Workstation ID: [id number] Transcribed By: Self Edit Transcribed Date: 12/31/2024 08:45 ET Narrative 12/31/2024 8:45 AM EDT XR KNEE 4+ VIEWS RIGHT INDICATION: Pain, swelling TECHNIQUE: XR KNEE 4+ VIEWS RIGHT COMPARISON: No priors available. Procedure Note Arnold Lew MD - 12/31/2024 XR KNEE 4+ VIEWS RIGHT INDICATION: Pain, swelling TECHNIQUE: XR KNEE 4+ VIEWS RIGHT COMPARISON: No priors available. IMPRESSION: FINDINGS/IMPRESSION: No acute fracture or dislocation. Joint spaces arepreserved. Quadriceps and patellar enthesophytes. Prepatellar softtissue swelling. No joint effusion. -------- FINAL REPORT -------- Dictated By: ARNOLD LEW Dictated Date: 12/31/2024 08:45 ET Assigned Physician: ARNOLD LEW Reviewed and Electronically Signed By: ARNOLD LEW Signed Date: 12/31/2024 08:45 ET Workstation ID: [id number] Transcribed By: Self Edit Transcribed Date: 12/31/2024 08:45 ET us Isaak Walton MD IMG XR PROCEDURES Final Result * Uric acid (12/30/2024 6:29 PM EDT) [facility] Uric Acid 5.9 3.7 - 9.2 mg/dL LAB CHEMISTRY METHOD 12/30/2024 7:51 PM EDT [facility] Blood Venous blood specimen / Unknown Venipuncture / Unknown 12/30/2024 6:29 PM EDT 12/30/2024 6:43 PM EDT Isaak Walton MD LAB BLOOD ORDERABLES Final Resul t Performing Organization Address City/[facility]/ZIP Co de Phone Number [facility] [address] [place] [address], [place] [phone] * (ABNORMAL) Sedimentation rate, automated (12/30/2024 6:29 PM EDT) [facility] Sed Rate 36(H) 0 - 20 mm/hr LAB HEMETOLOGY METHOD 12/30/2024 7:40 PM EDT [facility] Blood Venous blood specimen / Unknown Venipuncture / Unknown 12/30/2024 6:29 PM EDT 12/30/2024 6:43 PM EDT Juan Chance MD LAB BLOOD ORDERABLES Fin al Result Performing Organization Address City/[facility]/ZIP Co de Phone Number [facility] [address] [place] [address], [place] [phone] * (ABNORMAL) C-reactive protein (12/30/2024 6:29 PM EDT) [facility] C-Reactive Protein 1.09(H) <=0.50 mg/dL LAB CHEMISTRY METHOD 12/30/2024 7:51 PM EDT [facility] Blood Venous blood specimen / Unknown Venipuncture / Unknown 12/30/2024 6:29 PM EDT 12/30/2024 6:43 PM EDT us Juan Chance MD LAB BLOOD ORDERABLES Fin al Result [facility] [address] [place] [address], [place] [phone] * (ABNORMAL) CBC auto differential (12/30/2024 6:29 PM EDT) WBC 9.3 4.8 - 10.8 K/mcL LAB HEMETOLOGY METHOD 12/30/2024 6:54 PM EDT [facility] RBC 5.00 4.50 - 5.50 M/mcL LAB HEMETOLOGY METHOD 12/30/2024 6:54 PM EDT [facility] Hemoglobin 13.7 13.5 - 17.5 g/dL LAB HEMETOLOGY METHOD 12/30/2024 6:54 PM EDT [facility] Hematocrit 43.5 42.0 - 54.0 % LAB HEMETOLOGY METHOD 12/30/2024 6:54 PM EDT [facility] MCV 86.5 79.0 - 98.0 FL LAB HEMETOLOGY METHOD 12/30/2024 6:54 PM EDT [facility] MCH 27.2 27.0 - 32.0 pcg LAB HEMETOLOGY METHOD 12/30/2024 6:54 PM EDT [facility] MCHC 31.5(L) 32.0 - 37.0 g/dL LAB HEMETOLOGY METHOD 12/30/2024 6:54 PM EDT [facility] RDW 13.8 11.0 - 15.0 % LAB HEMETOLOGY METHOD 12/30/2024 6:54 PM EDT [facility] Platelets 224 130 - 400 K/mcL LAB HEMETOLOGY METHOD 12/30/2024 6:54 PM EDT [facility] MPV 10.7 7.0 - 11.0 FL LAB HEMETOLOGY METHOD 12/30/2024 6:54 PM EDT [facility] NRBC 0.0 <1.0 % LAB [facility] NR[facility] Absolute 0.00 <0.10 K/mcL LAB HEMETOLOGY METHOD [facility]/30[facility]24 [facility] Neutrophils Relative 63.2 % LAB HEMETOLOGY METHOD [facility]/30[facility] Lymphocytes Relative 21.9 % LAB HEMETOLOGY METHOD 12/30/2024 6:54 PM [facility] Monocytes Relative 11.4 % LAB HEMETOLOGY METHOD 12/30/2024 6:54 PM [facility] Eosinophils Relative 2.7 % LAB HEMETOLOGY METHOD 12/30/2024 6:54 PM [facility] Basophils Relative 0.5 % LAB HEMETOLOGY METHOD 12/30/2024 6:54 PM [facility] Immature Granulocytes Relative 0.3 % LAB HEMETOLOGY METHOD 12/30/2024 6:54 PM [facility] Neutrophils Absolute 5.89 1.50 - 7.00 K/mcL LAB HEMETOLOGY METHOD 12/30/2024 6:54 PM EDT [facility] Lymphocytes Absolute 2.04 1.00 - 5.00 K/mcL LAB HEMETOLOGY METHOD [facility] Monocytes Absolute 1.06(H) 0.20 - 1.00 K/mcL LAB HEMETOLOGY METHOD 12/30/2024 6:54 PM [facility] Eosinophils Absolute 0.25 0.00 - 0.50 K/mcL LAB HEMETOLOGY METHOD 12/30/2024 6:54 PM EDT [facility] Basophils Absolute 0.05 0.00 - 0.20 K/mcL LAB HEMETOLOGY METHOD 12/30/2024 6:54 PM EDT [facility] Immature Granulocytes Absolute 0.03 0.00 - 0.03 K/mcL LAB HEMETOLOGY METHOD 12/30/2024 6:54 PM EDT [facility] Blood Venous blood specimen / Unknown Venipuncture / Unknown 12/30/2024 6:29 PM EDT 12/30/2024 6:43 PM EDT us Isaak Walton MD LAB BLOOD ORDERABLES Final Resul t [facility] [address] [place] [address], [place] [phone] * (ABNORMAL) Basic metabolic panel (12/30/2024 6:29 PM EDT) Sodium 140 133 - 145 mmol/L LAB CHEMISTRY METHOD 12/30/2024 7:07 PM [facility] Potassium 4.2 3.5 - 5.5 mmol/L LAB CHEMISTRY METHOD 12/30/2024 7:07 PM [facility] Chloride 104 96 - 110 mmol/L LAB CHEMISTRY METHOD 12/30/2024 7:07 PM [facility] CO2 30 21 - 32 mmol/L LAB CHEMISTRY METHOD 12/30/2024 7:07 PM [facility] Anion Gap 6 3 - 11 LAB CHEMISTRY METHOD 12/30/2024 7:07 PM [facility] Glucose 173(H) 70 - 100 mg/dL LAB CHEMISTRY METHOD 12/30/2024 7:07 PM [facility] BUN 31(H) 5 - 25 mg/dL LAB CHEMISTRY METHOD 12/30/2024 7:07 PM [facility] Creatinine 1.85(H) 0.70 - 1.30 mg/dL LAB CHEMISTRY METHOD 12/30/2024 7:07 PM EDT [facility] eGFR 38(L) >=60 mL/min/1. 73m2 LAB CHEMISTRY METHOD 12/30/2024 7:07 PM EDT [facility] Comment:Calculation based on the Chronic Kidney Disease Epidemiology Collaboration (CKD-EPI) equation refit without adjustment for race. BUN/Creatinine Ratio 16.8 LAB CHEMISTRY METHOD 12/30/2024 7:07 PM EDT [facility] Calcium 9.5 8.5 - 10.5 mg/dL LAB CHEMISTRY METHOD 12/30/2024 7:07 PM EDT [facility] Blood Venous blood specimen / Unknown Venipuncture / Unknown 12/30/2024 6:29 PM EDT 12/30/2024 6:43 PM EDT us Isaak Walton MD LAB BLOOD ORDERABLES Final Resul t [facility] [address] [place] [address], documented in this encounter Visit Diagnoses Diagnosis Knee effusion, right- Primary Effusion of lower leg joint Cellulitis of knee, right documented in this encounter Administered Medications Inactive Administered Medications - up to 3 most recent administrations Medication Order MAR Action Action Date Dose Rate Site cephalexin (KEFLEX) capsule 500 mg 500 mg, oral, Once, On Sat12/30/24 at 2226, For 1 dose, Indication: Skin/Soft Tissue Given 12/30/2024 11:04 PM EDT 500 mg lidocaine (PF) (XYLOCAINE-MPF) 1 % injection 10 mL 10 mL, infiltration, Once, On Sat12/30/24 at 1956, For 1 dose Given by Other 12/30/2024 8:37 PM EDT 10 mL documented in this encounter Active and Recently Administered Medications Times are shown in EDT. Scheduled Medication Order 12/28/2024 12/29/2024 12/30/2024 cephalexin (KEFLEX) capsule 500 mg (COMPLETED) 500 mg, oral, Once, On Sat12/30/24 at 2226, For 1 dose, Indication: Skin/Soft Tissue 2304 (Given - Provid er: Priscilla Zarco RN) lidocaine (PF) (XYLOCAINE-MPF) 1 % injection 10 mL (COMPLETED) 10 mL, infiltration, Once, On Sat12/30/24 at 1956, For 1 dose 2036 (Given by Other - Provider: Priscilla Zarco RN - Comment: given by dr. Walton) documented in this encounter Care Teams Veneer Press Operator Relationship Specialty Start Date End Date Zahira Ngo PA [facility] [place] [address] PCP - General 01/30/24 documented as of this encounter
--- NOTE | ~2025-01-04 | XR_ITS ---
CLINICAL HISTORY: pain 4 view right knee Comparison: None provided Findings: Osteopenia. No acute fracture. Tricompartmental joint space narrowing pronounced in the medial and patellofemoral compartments. Trace joint effusion. No radiopaque foreign body. Anterior soft tissue swelling. IMPRESSION: No acute fracture. This document has been electronically signed by: Marek Preston MD on 01/04/2025 18:45:29
[2025-01-04 18:02] VITALS: BP 136/64; PULSE 64; RESP 20; TEMP 36.5; O2SAT 98; BMI 25.0
--- NOTE | 2025-01-04 18:04 | ED_ITS ---
HPI - General Adult General Chief complaint: Extremity Injury, Lower Stated complaint: right knee pain Time Seen by Provider: 01/04/25 20:48 Related Data Previous Rx's ?Medication ?Instructions ?Recorded amlodipine 2.5 mg tablet 2.5 mg PO DAILY 20 days #20 tabs 10/19/24 diphenhydramine HCl 25 mg capsule 25 mg PO TID PRN all ergic reaction 10/19/24 (Benadryl) #15 caps epinephrine 0.3 mg/0.3 mL 0.3 mg (0.3 mL) IM Q15M PRN 10/19/24 injection, auto-injector (EpiPen) anaphylaxis #1 ea prednisone 20 mg tablet 40 mg (2 x 20 mg) PO DAILY 5 days 10/19/24 #10 tabs Allergies Allergy/AdvReac Type Severity Reaction Status Date / Time No Known Allergies Allergy Verified 01/04/25 18:02 [facility] Social History Social History Advance Directives: No Advance Directives Information Provided: Yes Do you have a plan to hurt others: No Plan Physical Exam ED Vital Signs: Vital Signs - 24 hr 01/04/25 18:02 Temperature 97.7 F Pulse Rate 64 Respiratory Rate 20 Blood Pressure 136/64 Pulse Oximetry 98 Oxygen Delivery Method Room Air BMI result Body Mass Index 25.0 Course Course Course Narrative: Rapid medical examination performed in triage by Staci Bowers PA-C. Patient is a 74 year old assigned male at presenting to the emergency department with right knee pain. Detailed physical exam and review of systems are deferred to the applied psychology teacher. Imaging ordered. Patient placed back in the waiting room pending room availability and results. Reevaluation(s) Reevaluation #1: I had signed up for the patient, I am went to assess him, he had left without completing treatment Discharge Plan Discharge Clinical Impression: Knee pain, right Patient Disposition: Left W/O Completing Treatment Prescriptions: No Action amlodipine 2.5 mg tablet 2.5 mg PO DAILY 20 Days Qty: 20 0RF diphenhydramine HCl [Benadryl] 25 mg capsule 25 mg PO TID PRN (Reason: allergic reaction) Qty: 15 0RF prednisone 20 mg tablet 40 mg PO DAILY 5 Days Qty: 10 0RF epinephrine [EpiPen] 0.3 mg/0.3 mL auto-injector 0.3 mg IM Q15M PRN (Reason: anaphylaxis) Qty: 1 0RF Rx Instructions: for 2 doses. inject into thigh Discharge Date/Time: 01/04/25 21:22
--- OUTSIDE RECORDS SUMMARY | 2025-01-04 20:37 | XMS_ITS | Encounter Summary ---
Author Organization [facility] Address [address] [place] [address] Care Team Providers Care Back Tender Pulp Drier Name Role Phone Zahira Ngo PA-C Primary Care Provider [phone] Encounter Details Date Type Department Care Team (Late st Contact Info) Description 11/01/2022 Interim Notes [facility] [address] [place] [address] Zahira Ngo PA-C [address] [place], [place] [id number] Social History Tobacco Use Types Packs/Day Years Used Date Smoking Tobacco: Former Smokeless Tobacco: Former Alcohol Use Standard Drinks/Week Comments No 0 (1 standard drink = 0.6 oz pur e alcohol) Social Connections Answer Date Recorded Social Connections and Isolation 0 12/17/2018 Financial Resource Strain Answer Date R ecorded Financial Resource Strain 0 2018 Stress Answer Date Recorded Stress 0 12/17/2018 Physical Activity Answer Date Recorded Physical Activity 0 12/17/2018 Food Insecurity Answer Date Recorded Food 0 12/17/2018 Transportation Needs Answer Date Record ed Transportation 0 12/17/2018 Housing Stability Answer Date Recorded Housing 0 12/17/2018 Safety and Environment Answer Date Amado rded Safety 0 12/17/2018 Utilities Answer Date Recorded Utilities 0 12/17/2018 Employment Answer Date Recorded Employment 0 12/17/2018 Sex and Gender Information Value Date Recorded Sex Assigned at Male 02/28/2017 1:48 PM PDT Legal Sex Male 12:44 PM PST Gender Identity Male 02/28/2017 1:48 PM PDT Sexual Orientation Straight 05/14/2017 10 :13 AM PST COVID-19 Exposure Response Date Recorded In the last 10 days, have yo u been in contact with someone who was confirmed or suspected to have Coronavirus/COVID-19? No / Unsure 10/16/2022 10:16 AM EDT documented as of this encounter Progress Notes * Stephanie Vo MA - 11/01/2022 9:52 AM EDT Faxed over prescription flash glucose sensor to [phone]. Received confirmation was a success. documented in this encounter Plan of Treatment Upcoming Encounters Date Type Department Care Team (Late st Contact Info) Description 01/07/2025 1:00 PM EDT Office Visit [facility] [address] [place] [phone] Nima Moss PharmD [address] [place] [address] Carlie Montalvo [address] [place] [id number] documented as of this encounter Visit Diagnoses Not on filedocumented in this encounter Additional Health Concerns Assessment Noted Time PHQ-9 Depression Total Score: 5 05/30/19 23 2:00 PM PST documented as of this encounter Care Teams Back Tender Pulp Drier Relationship Specialty Start Date End Date Zahira Ngo PA-C [facility] [place] [address] PCP - General Internal Medicine 05/29/20 documented as of this encounter
--- OUTSIDE RECORDS SUMMARY | 2025-01-04 20:37 | XMS_ITS | Clinical Summary ---
Author Organization [facility] Address [address] [place] [address] Care Team Providers Care Motor Vehicle License Clerk Name Role Phone Zahira Ngo PA-C Primary Care Provider [phone] Source Comments PLEASE NOTE, if this patient is a minor, it may be UNLAWFUL to discuss sensitive information that is contained in these records (such as FAMILY PLANNING, MENTAL HEALTH or SUBSTANCE ABUSE) with the minor patient's parent or other person without the patient's specific authorization.[facility] Allergies No known active allergies Medications mirtazapine (REMERON) 45 mg tabletIndications :Coronary artery disease involving [place] heart with unstable angina pectoris, unspecified vessel or lesion type ([facility]) 018 Active blood pressure test kit-mediumIndicat ions:Essential hypertension Dx: HTN I10. Check BP once daily and as needed for s/sx HTN. 1 Kit Active FREESTYLE LITE METER monitoring kitIndications:In sulin dependent type 2 diabetes mellitus ([facility]) 4 (four) times daily 1 Each Active ONETOUCH DELICA PLUS LANCET 33 gaugeIndications: Insulin dependent type 2 diabetes mellitus ([facility]) USE DIRECTED 3 TIMES A DAY BEFORE MEALS 120 Each 3 Active escitalopram oxalate (LEXAPRO) 5 mg tablet TAKE 1 TABLET BY MOUTH EVERY DAY IN THE MORNING Active ferrous sulfate 325 mg (65 mg iron) tablet Take 325 mg by mouth once daily with breakfast Active omega 1-kez-cyi-fish oil 300-1,000 mg cap Take by mouth Active isosorbide mononitrate (IMDUR) 30 mg 24 hr tabletIndications :Coronary artery disease involving [place] heart with unstable angina pectoris, unspecified vessel or lesion type ([facility]) TOME WEI TABLETA TODOS LOS GRUBBS EN LA MANANA 90 Tablet 1 021 Active tamsulosin (FLOMAX) 0.4 mg 24 hr capsuleIndication s:Benign prostatic hyperplasia with lower urinary tract symptoms, symptom details unspecified TAKE 1 CAPSULE BY MOUTH EVERY DAY 90 Capsule 022 Active ezetimibe (ZETIA) 10 mg tablet Take 10 mg by mouth once daily 022 Active MYRBETRIQ 50 mg Tb24 022 Active nitroglycerin (NITROSTAT) 0.4 mg SL tablet Authorized by: EVELINA ROMEO 023 Active dorzolamide (TRUSOPT) 2 % ophthalmic solution INSTILL 1 DROP INTO BOTH EYES EVERY DAY Authorized by: GISELA SALGUERO 024 Active timolol (TIMOPTIC) 0.5 % ophthalmic solution INSTILL 1 DROP INTO BOTH EYES EVERY DAY Authorized by: GISELA SALGUERO 024 Active lidocaine (LIDODERM) 5 % patchIndications: Left flank pain,Diffuse pain PLACE 1 PATCH ONTO THE SKIN EVERY 12 HOURS 12 HOURS ON AND OFF 60 Patch 2 024 Active terbinafine HCL (LAMISIL) 1 % creamIndications: Onychomycosis Apply topically 2 (two) times daily 12 g 024 Active blood-glucose meter monitoring kitIndications:Ty pe 2 diabetes mellitus with hyperglycemia, with long-term current use of insulin ([facility]) daily. One Touch Ultra glucometer to check sugar once a day. 1 Each 024 Active lancetsIndication s:Type 2 diabetes mellitus with hyperglycemia, with long-term current use of insulin ([facility]) daily. OneTouch Delica lancets to check sugar once a day. 1 Each 024 Active pen needle, diabetic (COMFORT EZ PEN NEEDLES) 32 gauge x 5/32 ndleIndications:T ype 2 diabetes mellitus with hyperglycemia, with long-term current use of insulin ([facility]) Use 1 needle for each injection QID 200 Each 11 025 Active flash glucose sensor (FREESTYLE YOMAIRA 2 SENSOR) kitIndications:Ty pe 2 diabetes mellitus with hyperglycemia, with long-term current use of insulin ([facility]) 1 Each by miscellaneous route every 14 (fourteen) days 2 Each 025 Active gabapentin (NEURONTIN) 800 mg tabletIndications :Lumbar disc herniation,Chroni c right-sided low back pain with right-sided sciatica Take 1 Tablet by mouth once daily 60 Tablet 2 025 Active insulin aspart (NOVOLOG FLEXPEN U-100 INSULIN) 100 unit/mL (3 mL)Indications:Ty pe 2 diabetes mellitus with hyperglycemia, with long-term current use of insulin ([facility]) USE WITH SLIDING SCALE 4-28 UNITS UP TO 84 UNITS DAILY 30 mL 3 [address] tabletIndications :Hyperlipidemia, unspecified hyperlipidemia type TAKE 1 TABLET BY MOUTH EVERY DAY 90 Tablet 1 025 Active amLODIPine (NORVASC) 2.5 mg tablet Take 2.5 mg by mouth once daily. 025 Active EPINEPHrine (EPIPEN) 0.3 mg/0.3 mL pen injector 025 Active metoprolol succinate XL (TOPROL-XL) 25 mg 24 hr tabletIndications :Essential hypertension TAKE 1 TABLET BY MOUTH EVERY DAY 90 Tablet 1 025 Active cyclobenzaprine (FLEXERIL) 10 mg tablet Take 10 mg by mouth 2 (two) times daily. 025 Active dapagliflozin propanediol (FARXIGA) 10 mg tabIndications:Ty pe 2 diabetes mellitus with hyperglycemia, with long-term current use of insulin ([facility]) Take 1 Tablet by mouth every morning. 90 Tablet 1 025 Active insulin glargine (LANTUS SOLOSTAR U-100 INSULIN) 100 unit/mL (3 mL) penIndications:Ty pe 2 diabetes mellitus with hyperglycemia, with long-term current use of insulin ([facility]) Inject 64 Units into the skin nightly at bedtime. 54 mL 1 025 Active blood-glucose sensor (FREESTYLE YOMAIRA 3 PLUS SENSOR) deviIndications:T ype 2 diabetes mellitus with hyperglycemia, with long-term current use of insulin ([facility]) Apply 1 sensor to back of upper arm every 15 days. Use to continuously monitor glucose. ( FreeStyle Yomaira 3 Plus Sensor). 2 Each Active blood sugar diagnostic stripsIndications :Type 2 diabetes mellitus with hyperglycemia, with long-term current use of insulin ([facility]) 1 Each 3 (three) times daily NALINI test strips to check sugar 3 times a day.. 100 Each Active VITAMIN C 500 mg tablet TAKE 1 TABLET BY MOUTH ONCE DAILY WITH IRON SUPPLEMENT 90 Tablet 1 Active omeprazole (PRILOSEC) [address] capsuleIndication s:Gastroesophagea l reflux disease, unspecified whether esophagitis present TAKE 1 CAPSULE BY MOUTH EVERY DAY IN THE MORNING BEFORE BREAKFAST 90 Capsule 1 025 Active atorvastatin (LIPITOR) 80 mg tabletIndications :Hyperlipidemia, unspecified hyperlipidemia type TAKE 1 TABLET BY MOUTH EVERY DAY 90 Tablet 1 025 Active blood-glucose,rec eiver,cont (FREESTYLE YOMAIRA 3 READER) miscIndications:T ype 2 diabetes mellitus with hyperglycemia, with long-term current use of insulin ([facility]) USE TO TEST BLOOD GLUCOSE AT LEAST 3X DAILY (FREESTYLE YOMAIRA 3 READER). 1 Each 025 Active atorvastatin (LIPITOR) 80 mg tabletIndications :Hyperlipidemia, unspecified hyperlipidemia type TAKE 1 TABLET BY MOUTH EVERY DAY 90 Tablet 1 025 2024 Discontinued blood-glucose,rec eiver,cont (FREESTYLE YOMAIRA 3 READER) miscIndications:T ype 2 diabetes mellitus with hyperglycemia, with long-term current use of insulin ([facility]) Use to test blood glucose at least 3x daily (FreeStyle Yomaira 3 [place]). 1 Each 025 2024 Discontinued Active Problems Problem Noted Date Diagnosed Date Lumbar radiculopathy 10/13/2024 Lumbar spondylosis 10/13/2024 Uses self-applied continuous glucose monitoring device 03/13/2023 Other specified glaucoma 11/08/2020 Overview (11/08/2020): [facility] at [facility] Palpitations 06/09/2020 Overview (10/21/2024): Last Assessment & Plan: He states on 3 separate occasions last week he had palpitations lasting for about 15 to 20 minutes. The etiology of these is unclear. They occurred while he was at rest. I am going to have him wear a 24-hour Holter monitor. He will notate whether or not he has symptoms while he wears the monitor. If he has no palpitations in a 24- hour period we will consider a 7-day ROCT. 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 All benign lesions; one nevus that hurts is 2-toned, will biopsy the right mid-back. CAD (coronary artery disease) 05/14/2017 Overview (10/02/2018): Admitted to [facility] 05/01/17 and underwent cardiac cath with stent placement x 1. Discharged on Plavix 75 mg QD, Isosorbide Mononitrate 30 mg, and NTG. D/t obstructive lesion in Left circumflex artery. Recommended dual antiplatelet therapy with Plavix and ASA for 1 year. 05/18/17 [facility] ED for CP. Work up negative. Given Tramadol and advised f/u with PCP 06/10/17 [facility] ED admitted for CP. 08/26/17 F/u [facility]. S/o TYSHAWN to circumflex in Apr 2017. Advised cont ASA and Plavix dual therapy for 1 year. Cont hydralazine, Imdur, lisinopril, metoprolol, high intensity statin. F/u 6 months Followed by [facility] Dr. Bowling. Lumbar disc herniation L3-L4, L4-L5 MRI 07/11/16 01/25/2016 Overview (07/17/2017): 9/21/16 seen at [facility] ED for back pain. Given Robaxin and ibuprofen. 02/08/16 Xray of lumbar spine at [facility] shows degenerative changes. Consider lumbar spine MRI to assess the posterior disc margins . 07/11/16 MRI of lumbar spine at [facility] shows Mild spinal and Left foraminal stenosis at L4-5, borderlines spinal and mild L foraminal stenosis at L3-L4, mid Left foraminal stenosis at L5-S1 Referred to ortho 08/13/16 Pt evaluated by Celeste See PA-C at [facility]. Advised conservative measures, would not recommend surgery. Advised eval for cortisone injection or acupuncture. 07/11/17 [facility] ED for acute lumbar sttrain. Given toradol IM, morphine, lumbar xray and U/A WNL. GIven oxycodone #20, methocarbamol, naproxen. 07/15/17 [facility] ED for back pain. Advised will get CT Of lumbar spine to r/o compression fracture. Negtive for compression fracture, spondyloysis or spondylolisthesis. Degenerative changes including mild central spinal stenosis at L3-L4 and L4-L5. Advised continue med regimen at home, consider PT and MRI. Type 2 diabetes mellitus wit h hyperglycemia, with long-term current use of insulin ([facility]) 07/14/2015 Overview (09/26/2017): Managed by endocrine at [facility]. Managed with Levemir and scheduled Humalog. Sliding scale 6-30 units humaolog TID to QID with meals and Levemir 30 units qHS. 10/12/15 f/u with Dr Evelyn Woo for T2DM; on w2ibnawb 14u with breafast, 16- 20 u with lungh, 34 u with supper. Levemir 32-34 u SQ. HbA1c = 9.5%; suboptimal control; interested in getting insulin pump 10/15/16 F/u with Dr Mcintosh. Try decreasing novolog sliding scale by 5u at each level to prevent hypoglycemia, continue same Levemir dose. 03/20/17 F/u AMINATA Oneill. Use Levemir 55 u BID, Novolog 10-25u TID AC meals. Continue same, f/u 4 months 08/30/17 F/u AMINATA aYnez, at [facility]. Advised continue Humalog 5u before breakfast, 5-10u before lungh and 25-30u before dinner. Check BS TID. Lantus 56 uits qhS Gastroesophageal reflux disease 07/14/2015 Essential hypertension 07/14/2015 Constipation 07/14/2015 Anxiety and depression 07/14/2015 Overview (07/14/2015): Managed by psychiatrist and therapist at [facility]. Pt takes mirtazapine 45mg qHS, Celexa 40mg 1 tab PO QD, hydroxyzine 50mg 1 tab PO QID PRN. BPPV (benign paroxysmal positional vertigo) 06/27 Mixed hyperlipidemia 07/14/2015 CKD (chronic kidney disease) Stage 3 07/14/2015 Overview (04/17/2018): Managed by Dr Ch, seat joiner chainstitch 10/13/15, routine f/u for CKD stage 3m baseline Cr of 1.5-1.7 with diabetic nephropathy, hypertensive nephrosclerosis, and stable bilateral renal cysts. No changes to treatment, f/u 6 months 07/19/16 F/u Dr Ch. Baseline Cr is 1.4-1.7, diabetic nephropathy, hypertensive nephrosclerosis. Continue lisinopril 5 mg QD< metoprolol 12.5 mg BID, needs to improve diabetic control. F/u 6 months 10/15/16 F/u Dr Ch. Continue lisinopril 5 mg daily, metoprolol 12.5 mg BID. F?u 6 months. 05/23/17 F/u Dr Ch. No changes in meds. Advised low potassium diet for hypercalcemia. F/u 4 months 03-27-18 - no adjustments to current HTN therapy. Continue lisinopril 5mg daily and metoprolol succinate 25mg a day for BP control. RTC in 6 months. Chronic headaches 07/14/2015 Overview (07/14/2015): ED visit to [facility] 03/14/15, rec'd CT of head with no abnormalities. Osteopenia 07/14/2015 Overview (07/14/2015): DEXA scane 06/15/11 T score -0.1 of spine, -0.3 of femur. T score = -1.6 Impression: moderately low bone mineral density. Moderate fracture risl. Resolved Problems Problem Noted Date Diagnosed Date Resolved Date Musculoskeletal chest pain 10/26/2016 0 07/12/2022 Overview (10/26/2016): 10/05/16 [facility] ED. Cardiac w/u negative Left lower quadrant pain 07/19/2015 Overview (07/19/2015): [facility] ED 07/15/15 for LLQ abd pain. Found to have elevated lipase, no findings on CT scan (except incidental finding of enlarged prostate). Pain resolved in ED. Iron deficiency anemia 07/14/201510/12 Pain in joint 07/14/2015 07/12/2022 Chronic kidney disease, stag e 3b ([facility]) 07/14/2015 07/12/2022 Overview (02/19/2022): Managed by Dr Ch, seat joiner chainstitch 10/13/15, routine f/u for CKD stage 3m baseline Cr of 1.5-1.7 with diabetic nephropathy, hypertensive nephrosclerosis, and stable bilateral renal cysts. No changes to treatment, f/u 6 months 07/19/16 F/u Dr Ch. Baseline Cr is 1.4-1.7, diabetic nephropathy, hypertensive nephrosclerosis. Continue lisinopril 5 mg QD< metoprolol 12.5 mg BID, needs to improve diabetic control. F/u 6 months 10/15/16 F/u Dr Ch. Continue lisinopril 5 mg daily, metoprolol 12.5 mg BID. F?u 6 months. 05/23/17 F/u Dr Ch. No changes in meds. Advised low potassium diet for hypercalcemia. F/u 4 months 03-27-18 - no adjustments to current HTN therapy. Continue lisinopril 5mg daily and metoprolol succinate 25mg a day for BP control. RTC in 6 months. Update for Diagnosis Load Encounters Date Type Department Care Team Description 11/24/2024 Interim Notes [address] [id number] [place] 11/13/2024 Interim Notes [address] [phone] Zahira Ngo PA-C 11/12/2024 1:40 PM EDT Office Visit [address] [phone] Nima Moss, PharmD Earnestine Guardado 10/28/2024 Results Follow-Up [address] [phone] Paulie Redman PA-C 10/21/2024 11:00 AM EDT Office Visit [address] [phone] Paulie Redman PA-C from Last 3 Months Immunizations Immunization Administration Dates Next Due Flu, Adjuvant, 65y+ (Fluad) 01/21/2020 Flu, High Dose, 65y+, Fluzone High Dose 03/29/20 22,02/01/2021 Flu, Preservative Free 01/10/2023 INFLUENZA, SEASONAL, INJECTABLE 04/03/2017,02/02 Influenza (FLUZONE), high-do se, trivalent, PF 01/15/2024,01/16/2019,03/18/2018 Moderna COVID-19 Vaccine, re d cap blue label, 12+ Primary Series 07/09/2020,06/11/2020 PNEUMOCOCCAL CONJUGATE PCV 13 10/15/2017 PNEUMOCOCCAL POLYSACCHARIDE PPV23 (Pneumovax 23) 11/02/2021,05/31/2016 TDAP 03/14/2020,05/31/2016 ZOSTER VACCINE, RECOMBINANT (SHINGRIX) 9,10/15/2017 Family History Medical History Relation Name Comments Heart Problems Father Diabetes Mother Heart Problems Sister Relation Name Status Comments Father Mother Alive Sister Social History Tobacco Use Types Packs/Day Years Used Date Smoking Tobacco: Former Passive Smoke Exposure: Never Smokeless Tobacco: Former Tobacco Cessation:Counseling Given: Not Answered Alcohol Use Standard Drinks/Week Comments No 0 (1 standard drink = 0.6 oz pur e alcohol) Social Connections Answer Date Recorded Connectedness 0 04/12/2023 Financial Resource Strain Answer Date R ecorded Financial Resource Strain 0 2022 Stress Answer Date Recorded Stress 0 04/12/2023 Physical Activity Answer Date Recorded Physical Activity 0 12/17/2018 Food Insecurity Answer Date Recorded Food 0 04/12/2023 Transportation Needs Answer Date Record ed Transportation 0 04/12/2023 Housing Stability Answer Date Recorded Housing 0 04/12/2023 Safety and Environment Answer Date Amado rded Safety 0 12/17/2018 Utilities Answer Date Recorded Utilities 0 04/12/2023 Employment Answer Date Recorded Stress 0 04/12/2023 Sex and Gender Information Value Date Recorded Sex Assigned at Male 02/28/2017 1:48 PM PDT Legal Sex Male 12:44 PM PST Gender Identity Male 02/28/2017 1:48 PM PDT Sexual Orientation Straight 05/14/2017 10 :13 AM PST Last Filed Vital Signs Vital Sign Reading Time Taken Comments Blood Pressure 123/70 11/12/2024 1:40 PM EDT Pulse 72 11/12/2024 1:40 PM EDT Temperature 36.8 C (98.2 F) 11/12/2024 1:40 PM EDT Respiratory Rate 18 11/12/2024 1:40 PM EDT Oxygen Saturation 96% 10/21/2024 11:07 AM EDT Inhaled Oxygen Concentration - - Weight 64.4 kg (142 lb) 11/12/2024 1:40 PM EDT Height 154.9 cm (5' 1 ) 11/12/2024 1:40 PM EDT Body Mass Index 26.83 11/12/2024 1:40 PM EDT Plan of Treatment Upcoming Encounters Date Type Department Care Team (Late st Contact Info) Description 01/07/2025 1:00 PM EDT Office Visit [facility] [address] [place] [address] Nima Moss, PharmD [address] [place] [address] [place] [address] Health Maintenance Due Date Last Done Comments CT Colonography 1997 FIT/gFOBT 1997 Fecal DNA 1997 Flexible Sigmoidoscopy 1997 Dental Examination 03/24/2022 03/22/2021 Medicare Annual Wellness Visit 01/11/2024 01/10/2023 Colonoscopy 09/27/2024 09/27/2014 (Oralia mack by Outside Provider) Colorectal Cancer Screening 09/27/2024 Depression Monitoring 11/03/2024 08/04/2024 , 11/22/2023, 07/08/2023, Additional history exists Lipid Screening 11/21/2024 11/22/2023, 10/28, 10/02/2022, Additional history exists Imm-Influenza (#1) 2024 01/15/2024, 0 01/10/2023, 03/29/2022, Additional history exists Falls Prevention 01/14/2025 01/15/2024, , 03/22/2021, Additional history exists Hemoglobin A1c 01/21/2025 10/21/2024, 06/28, 03/31/2024, Additional history exists Retinopathy Screening 03/02/2025 03/02/2024 , 03/02/2024, 01/30/2023, Additional history exists Diabetes Foot Exam 04/20/2025 04/20/2024, 0 01/15/2024, 01/10/2023, Additional history exists Urine Albumin Creatinine Rat io Screening 06/24/2025 06/24/2024, 11/22/2023, 11/11/2023, Additional history exists Tobacco Screening 09/17/2025 09/17/2024, 11/11/2023 Serum Creatinine 12/30/2025 12/30/2024, , 11/08/2024, Additional history exists Imm-DTaP/Tdap/Td (3 - Td or Tdap) 03/14/2030 020, 05/31/2016 Hepatitis C Screening Completed 07/14/2015 Abdominal Aortic Aneurysm Screening Completed 10/20/2018 Imm-Zoster, Recombinant Completed 03/06/2019, 10/15 [id number] Discontinued 03/27/2021, 06/27, 06/11/2020 Imm-Pneumococcal 50+ Completed 11/02/2021, 10/15/2017, 05/31/2016 Alcohol and Drug Screen Completed 08/05/19, 05/19/2024, 07/08/2023, Additional history exists Procedures Procedure Name Priority Date/Time Associated Diagnosis Comments IMAGING SCANNED DOCUMENT 12/30/2024 3:00 AM EDT DXA BONE DENSITY STUDY SITES AXIAL SKEL Routine 12/10/2024 3:00 AM EDT Osteopenia, unspecified location MEDICATIONS SCANNED DOCUMENT 11/25/2024 3:00 AM EDT OTHER ORDERS SCANNED DOCUMENT 11/25/2024 3:00 AM EDT GLUCOSE, BLOOD BY GLUCOSE MONITORING DEVICE (CLIA WAIVED)POCT Routine 11/12/2024 1:44 PM EDT Type 2 diabetes mellitus with hyperglycemia, with long-term current use of insulin ([facility]) IMAGING SCANNED DOCUMENT 11/11/2024 3:00 AM EDT IMAGING SCANNED DOCUMENT 11/11/2024 3:00 AM EDT CARD SCANNED DOCUMENT 11/08/2024 3:00 AM EDT CARD SCANNED DOCUMENT 11/08/2024 3:00 AM EDT IMAGING SCANNED DOCUMENT 11/08/2024 3:00 AM EDT HGBA1C W/MPG Routine 10/21/2024 11:41 AM EDT Type 2 diabetes mellitus with hyperglycemia, with long-term current use of insulin ([facility]) CARD SCANNED DOCUMENT 10/21/2024 3:00 AM EDT LAB SCANNED DOCUMENT 10/19/2024 3:00 AM EDT REFERRAL TO ORTHOPEDICS Routine 10/14/2024 3:00 AM EDT Lumbar disc herniation L3-L4, L4-L5 MRI 07/11/16 Chronic right-sided low back pain with right-sided sciatica IMAGING SCANNED DOCUMENT 10/13/2024 3:00 AM EDT EYE EXAM 03/02/2024 3:00 AM EST COMPREHENSIVE METABOLIC PANEL Routine 11/22/2023 11:03 AM EDT Stage 3a chronic kidney disease ([facility]) LIPIDS W RFLX TO DIRECT LDL Routine 11/22/2023 11:03 AM EDT Stage 3a chronic kidney disease (HCC-CMS) MICROALBUMIN/CREATININ E RATIO, URINE, RANDOM Routine 11/22/2023 11:03 AM EDT Stage 3a chronic kidney disease (HCC-CMS) HEPATITIS A,B,C PANEL Routine 07/14/2015 10:55 AM EDT Preventative health care from Last 3 Months or Most Recently Relevant to Health Maintenance Results * IMAGING SCANNED DOCUMENT (12/30/2024 3:00 AM EDT) Only the most recent of5 resultswithin the time period is included. 12/30/2024 3:00 AM EDT [employer] PA-C SCAN IMAGING Final Result * DXA BONE DENSITY STUDY 1/> SITES AXIAL SKEL (12/10/2024 3:00 AM EDT) 12/10/2024 3:00 AM EDT [employer] PA-C IMG DXA Final Result * MEDICATIONS SCANNED DOCUMENT (11/25/2024 3:00 AM EDT) 11/25/2024 3:00 AM EDT [employer] PA-C SCAN MEDS OTHER ORDERS Final Result * OTHER ORDERS SCANNED DOCUMENT (11/25/2024 3:00 AM EDT) 11/25/2024 3:00 AM EDT Chma Provider Default SCAN OTHER ORDERS Final Re sult * (ABNORMAL) GLUCOSE, BLOOD BY GLUCOSE MONITORING DEVICE (CLIA WAIVED)POCT Routine (11/12/2024 1:44 PM EDT) GLUCOSE 124(A) 70 - 100 mg/dL [facility] POCT Capillary Blood Blood / Unknown 1:44 PM EDT Nima Romeromaty PharmD LAB - BLOOD DRAW Final Resu lt Performing Organization Address City/[facility]/ZIP Co de Phone Number [facility] POCT * CARD SCANNED DOCUMENT (11/08/2024 3:00 AM EDT) Only the most recent of3 resultswithin the time period is included. 11/08/2024 3:00 AM EDT Zahira Ngo PA-C SCAN ECGS Final Result * (ABNORMAL) HGBA1C W/MPG Routine (10/21/2024 11:41 AM EDT) HEMOGLOBIN A1C 8.0(H) <5.7 % Box Jump Comment: For someone without known diabetes, a hemoglobin A1c value of 6.5% or greater indicates that they may have diabetes and this should be confirmed with a follow-up test. For someone with known diabetes, a value <7% indicates that their diabetes is well controlled and a value greater than or equal to 7% indicates suboptimal control. A1c targets should be individualized based on duration of diabetes, age, comorbid conditions, and other considerations. Currently, no consensus exists regarding use of hemoglobin A1c for diagnosis of diabetes for children. MEAN PLASMA GLUCOSE 208 mg/dL (calc) [facility] Blood Blood / Unknown 10/21/2024 1 1:41 AM EDT 10/21/2024 11:41 AM EDT Paulie Redman PA-C LAB - BLOOD DRAW Final Resul t [employer] [address] [place] [id number], [facility] [address] [place] [phone] * LAB SCANNED DOCUMENT (10/19/2024 3:00 AM EDT) 10/19/2024 3:00 AM EDT Zahira Ngo PA-C SCAN LAB Final Result * REFERRAL TO ORTHOPEDICS (10/14/2024 3:00 AM EDT) 10/14/2024 3:00 AM EDT Rick Scotty CONSULTING SME-C REFERRAL Final Res ult * EYE EXAM (03/02/2024 3:00 AM EST) 03/02/2024 3:00 AM EST Zahira Ngo PA-C OTHER Edited Resul t - Final * (ABNORMAL) LIPIDS W RFLX TO DIRECT LDL (11/22/2023 11:03 AM EDT) CHOLESTEROL, TOTAL 104 <200 mg/dL [facility] HDL CHOLESTEROL 30(L) > OR = 40 mg/dL [facility] TRIGLYCERIDES 159(H) <150 mg/dL [facility] LDL-CHOLESTEROL 50 99 mg/dL (calc) [facility] Comment: Reference range: <100 Desirable range <100 mg/dL for primary prevention; <70 mg/dL for patients with CHD or diabetic patients with > or = 2 CHD risk factors. LDL-C is now calculated using the Bharat-Catherine calculation, which is a validated novel method providing better accuracy than the Friedewald equation in the estimation of LDL-C. Bharat JACOBSON et al. NOAM. 2013;310(19): 7244-7920 (http://education.[employer]/faq/SED850) CHOL/HDLC RATIO 3.5 <5.0 (calc) [facility] NON-HDL CHOLESTEROL 74 <130 mg/dL (calc) [facility] Comment: For patients with diabetes plus 1 major ASCVD risk factor, treating to a non-HDL-C goal of <100 mg/dL (LDL-C of <70 mg/dL) is considered a therapeutic option. Blood Blood / Unknown 11/22/2023 1 1:03 AM EDT 11/22/2023 11:04 AM EDT [employer] - 11/26/2023 4:56 PM EDT FASTING:NO Zahira Motana PA-C LAB - BLOOD DRAW Final Resul t Performing Organization Address [facility] Co de Phone Number [employer] [address] [address], [employer] [address] [phone] * MICROALBUMIN/CREATININE RATIO, URINE, RANDOM (11/22/2023 11:03 AM EDT) CREATININE, RANDOM URINE 90 20 - 320 mg/dL [facility] MICROALBUMIN 0.2 mg/dL [facility] [facility] Comment: Reference Range Not established MICROALBUMIN/CREA TININE RATIO, RANDOM URINE 2 <30 mg/g creat [facility] Comment: The ADA defines abnormalities in albumin excretion as follows: Albuminuria Category Result (mg/g creatinine) Normal to Mildly increased <30 Moderately increased 30-299 Severely increased > OR = 300 The ADA recommends that at least two of three specimens collected within a 3-6 month period be abnormal before considering a patient to be within a diagnostic category. Urine Urine specimen / Unknown 11/22/2023 11:03 AM EDT 11/22/2023 11:04 AM EDT [facility] - 11/26/2023 4:56 PM EDT FASTING:NO [employer] Talkina Ngo PA-C LAB URINE AMBULATORY Final R esult Performing Organization Address City/[facility]/ZIP Co de Phone Number [employer] [address] [address], [employer] [address] [phone] * (ABNORMAL) COMPREHENSIVE METABOLIC PANEL (11/22/2023 11:03 AM EDT) GLUCOSE 147(H) 65 - 139 mg/dL [facility] Comment: Non-fasting reference interval UREA NITROGEN (BUN) 33(H) 7 - 25 mg/dL [facility] CREATININE (blood) 1.88(H) 0.70 - 1.28 mg/dL [facility] EGFR 38(L) > OR = 60 mL/min/1. 73m2 [facility] BUN/CREATININE RATIO 18 6 - 22 (calc) [facility] SODIUM 139 135 - 146 mmol/L [facility] POTASSIUM 5.2 3.5 - 5.3 mmol/L [facility] CHLORIDE 104 98 - 110 mmol/L [facility] CARBON DIOXIDE 26 20 - 32 mmol/L [facility] CALCIUM 9.4 8.6 - 10.3 mg/dL [facility] PROTEIN, TOTAL 7.3 6.1 - 8.1 g/dL [facility] ALBUMIN 4.5 3.6 - 5.1 g/dL [facility] GLOBULIN 2.8 1.9 - 3.7 g/dL (calc) [facility] ALBUMIN/GLOBULI N RATIO 1.6 1.0 - 2.5 (calc) [facility] BILIRUBIN, TOTAL 0.4 0.2 - 1.2 mg/dL [facility] ALKALINE PHOSPHATASE 64 35 - 144 U/L [facility] AST 18 10 - 35 U/L [facility] ALT 23 9 - 46 U/L [facility] Blood Blood / Unknown 11/22/2023 1 1:03 AM EDT 11/22/2023 11:04 AM EDT Narrative [facility] - 11/26/2023 4:56 PM EDT FASTING:NO Zahira Ngo PA-C LAB - BLOOD DRAW Edited Resu lt - Final [employer] [address] [address], [employer] [address] [phone] * (ABNORMAL) HEPATITIS A,B,C PANEL (07/14/2015 10:55 AM EDT) HEPATITIS B SURFACE ANTIBODY NEGATIVE NEGATIVE [facility] HE[facility] B SURFACE ANTIGEN NEGATIVE NEGATIVE [facility]PAT[facility] C VIRUS DIAGNOSTIC NEGATIVE NEGATIVE [facility] HEPATITIS B CORE ANTIBODY NEGATIVE NEGATIVE [facility] HEPATITIS A ANTIBODY TOTAL POSITIVE(A) NEGATIVE [facility] Blood specimen (specimen) Blood / Unknown 07/14/2015 10:55 AM EDT 07/14/2015 10:59 AM EDT Narrative [facility] - 07/14/2015 1:48 PM EDT [facility] [employer] [address] [place] [address] PT ID [id number] ORD# [id number] us Krysta Roldan CONSULTING SME LAB - BLOOD DRAW Edited R esult - Final [facility] [address] [place] [address], from Last 3 Months or Most Recently Relevant to Health Maintenance Insurance [facility] 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
--- OUTSIDE RECORDS SUMMARY | 2025-01-04 20:37 | XMS_ITS | Clinical Summary ---
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 Active atorvastatin (LIPITOR) 80 mg tablet Take 1 tablet by mouth daily. 03/06/20 21 Active escitalopram (LEXAPRO) 5 mg tablet Take 5 mg by mouth daily. Active hydrALAZINE (APRESOLINE) 50 mg tablet Take 1 tablet by mouth daily. 03/06/20 21 Active insulin glargine (LANTUS) 100 unit/mL injection Inject 60 Units as directed daily. Active insulin lispro (HumaLOG) 100 UNIT/ML patient supplied pump Inject into the skin. Active linaGLIPtin 5 mg tablet Take 1 Tablet by mouth daily. Active lisinopriL (PRINIVIL,ZEST RIL) 5 mg tablet TAKE 1 TABLET BY MOUTH EVERY DAY 12/19/19 24 Active metoprolol tartrate (LOPRESSOR) 25 mg tablet Take 0.5 Tablets by mouth 2 times daily. 01/12/20 22 Active mirabegron (MYRBETRIQ) 50 mg tablet extended release 24 hr 24 hr tablet Take 1 Tablet by mouth daily. Active mirtazapine (REMERON) 45 mg tablet Take 45 mg by mouth at bedtime. Active nitroglycerin (NITROSTAT) 0.[address] 1 Tablet under the tongue every 5 minutes as needed for Chest pain. 01/29/20 23 Active omega-3 acid ethyl esters (LOVAZA) 1 gram capsule Take by mouth daily. Active polyethylene glycol (MIRALAX) 17 gram packet Take 1 Package by mouth daily. Active methocarbamoL (ROBAXIN) 500 mg tablet Take 1 tablet (500 mg total) by mouth 2 (two) times a day for 10 days. 20 tablet 08/08/19 Active oxyCODONE (ROXICODONE) 5 mg immediate release tabletIndicati ons:Pain of right lower extremity Take 0.5 tablets (2.5 mg total) by mouth every 6 (six) hours if needed for severe pain. Max Daily Amount: 10 mg 15 tablet 08/08/19 Active Additional Information Patient not taking.Reported on 10/21/2024 amLODIPine (NORVASC) 2.5 mg tablet Take 1 tablet (2.5 mg total) by mouth 1 (one) time each day. Active insulin aspart (NovoLOG FlexPen) 100 unit/mL (3 mL) injection pen USE WITH SLIDING SCALE 4-28 UNITS UP TO 84 UNITS DAILY Active gabapentin (NEURONTIN) 800 mg tablet Take 1 tablet (800 mg total) by mouth daily. 08/05/19 Active omeprazole (PriLOSEC) [address] capsule Take 1 capsule (40 mg total) by mouth 1 (one) time each day. Do not crush or chew. Active Farxiga 10 mg tablet Take 1 tablet (10 mg total) by mouth 1 (one) time each day in the morning. 08/12/19 Active metoprolol succinate (TOPROL-XL) 25 mg 24 hr tablet Take 1 tablet (25 mg total) by mouth 1 (one) time each day. Do not crush or chew. Active ascorbic acid (VITAMIN C) 500 mg tablet Take 1 tablet (500 mg total) by mouth 1 (one) time each day. Active terbinafine (LamISIL) 1 % cream Apply topically 2 times daily. 01/15/20 24 Active lidocaine (LIDODERM) 5 % patch Apply 1 patch topically 1 (one) time each day. 11/22/19 24 Active dorzolamide (TRUSOPT) 2 % ophthalmic solution Administer 1 drop into both eyes 2 (two) times a day. Active timolol (TIMOPTIC) 0.5 % ophthalmic solution Administer 1 drop into both eyes 2 (two) times a day. Active tamsulosin (FLOMAX) 0.4 mg 24 hr capsule Take 1 capsule (0.4 mg total) by mouth 1 (one) time each day. 05/03/19 22 Active ferrous sulfate 325 mg (65 mg elemental iron) tablet Take 1 tablet (325 mg total) by mouth 1 (one) time each day. Active isosorbide mononitrate (IMDUR) 30 mg 24 hr tabletIndicati ons:Atheroscle rotic heart disease of tribal coronary artery without angina pectoris TAKE 1 TABLET BY MOUTH EVERY DAY 90 tablet 1 12/08/19 25 Active ezetimibe (ZETIA) 10 mg tablet TAKE 1 TABLET BY MOUTH EVERYDAY AT BEDTIME 90 tablet 2 12/23/19 25 Active bisacodyL (DULCOLAX) 5 mg EC tablet Take 2 tablets by mouth right before beginning bowel prep. See instructions provided by the office 2 tablet 12/31/19 25 Active polyethylene glycol (Golytely) 236-22.74-6.74 -5.86 gram solution Take 4L by mouth once for one dose. May substitue any PEG. Starting at 2PM the day before your procedure drink 1 8oz glasses at your own pace until you complete half of the gallon. Finish 2nd half of the gallon at 8PM. 4000 mL 12/31/19 25 Active cephalexin (KEFLEX) 500 mg capsule Take 1 capsule (500 mg total) by mouth 4 (four) times a day for 7 days. 28 each 12/31/19 25 025 Active isosorbide mononitrate (IMDUR) 30 mg 24 hr tablet TAKE 1 TABLET BY MOUTH EVERY DAY 02/17/20 24 025 Discontinued ezetimibe (ZETIA) 10 mg tablet Take 1 tablet (10 mg total) by mouth at bedtime. TAWANDA GRUBBS AL ACOSTARSE 90 tablet 2 03/19/20 24 025 Discontinued Active Problems Problem Noted Date Diagnosed Date Chest pain 06/09/2020 Overview (03/16/2024): Last Assessment & Plan: Chest pain is atypical. Last for seconds only and is a pinching-like sensation. Comes and goes but never last for seconds at a time. I am going to order a new stress echocardiogram and if this is unremarkable he can stop Plavix for which I have given him a one-time refill at this time. He will do this on his beta-sen therapy. I did instruct him if he has any chest pain or chest discomfort lasting 15 minutes or longer he should seek urgent medical attention. Coronary artery disease 06/09/2020 Overview (03/16/2024): Last Assessment & Plan: Patient does not anginal symptoms. He regularly walks up and down the stairs without cardiorespiratory symptoms. His prior stress test to a good MET workload was without anginal symptoms or ischemia on his nuclear images. He does have lateral ST changes on his EKG that are similar to previous EKGs. For completeness, we will obtain an echocardiogram. If there are no wall motion abnormalities, no need for further testing is warranted. If there are wall motion abnormalities, would update his echo stress test at that time. Continue ongoing medical therapy for his CAD including beta-sen, aspirin, statin, Zetia, long-acting nitrates and KEVIN inhibitor. He will notify me of any changes in his current medical condition. Hyperlipidemia 06/09/2020 Overview (03/16/2024): Last Assessment & Plan: Well controlled lipid profile. Continue statin at current dose Hypertension 06/09/2020 Overview (03/16/2024): Last Assessment & Plan: Blood pressure well controlled. Continue KEVIN-I, LA nitrates, BB and hydralazine. Interestingly, his hydralazine has an unorthodox schedule as once a day, but it appears to be working well, so no changes have been made to his plan Palpitations 06/09/2020 Overview (03/16/2024): Last Assessment & Plan: He states on [...] period we will consider a 7-day ROCT. Encounters Date Type Department Care Team Description 12/30/2024 7:14 PM EDT - 12/30/2024 11:14 PM EDT Emergency [facility] Emergency [address] [place] [address] Isaak Walton MD Lawrenz, Cedric W, MD Knee effusion, right (Primary Dx); Cellulitis of knee, right Discharge Disposition: Home or Self Care 12/10/2024 8:10 AM EDT - 12/10/2024 11:59 PM EDT Hospital Encounter [facility] Bone Density [address] [place] [address] Osteopenia, unspecified location Discharge Disposition: Home or Self Care 11/11/2024 11:52 AM EDT - 11/11/2024 3:45 PM EDT Emergency [facility] Emergency [address] [place] [phone] Best Huerta MD Vertigo (Primary Dx) Discharge Disposition: Home or Self Care 11/08/2024 1:16 PM EDT - 11/08/2024 5:36 PM EDT Emergency [facility] Emergency [address] [place] [phone] Juan Daniel Mai MD Dizziness (Primary Dx); Chest pain, unspecified type; Hypertension, unspecified type; Nonintractable headache, unspecified chronicity pattern, unspecified headache type Discharge Disposition: Home or Self Care 10/19/2024 Telephone [facility] [address] [phone] Farnaz Herman NP 10/13/2024 1:59 PM EDT - 10/13/2024 4:39 PM EDT Emergency [facility] Emergency [address] [place] [phone] Pain (Primary Dx); Sciatica of right side Discharge Disposition: Home or Self Care from Last 3 Months Immunizations Name Administration Dates Next Due Moderna SARS-CoV-2 COVID-19, mRNA, LNP-S, preservative free 07/09/2020,06/11/2020 Medical History Medical History Date Comments Diabetes mellitus (CMS/HCC V24, CMS/HCC V28) HLD (hyperlipidemia) Anemia Back pain Hypertension Family History Medical History Relation Name Comments Heart attack Father Heart attack Sister Relation Name Status Comments Father Sister Social History Tobacco Use Types Packs/Day [...] Orientation Straight 05/21/2024 3: 13 PM EST Obstetrics History Last Filed Vital Signs Vital Sign Reading [...] Mass Index 24.03 12/30/2024 6:19 PM EDT Plan of Treatment Upcoming Encounters Date Type Department Care Team (Late st Contact Info) Description 01/13/2025 12:00 PM EDT Appointment [facility] Endoscopy [address] [place] [address] Darius Stone MD [address] [place] [phone] Health Maintenance Due Date Last Done Comments Diabetes: Annual Foot Exam 1962 Diabetes: Annual Retina Eye Exam 1962 RSV Immunization Adult Patients (1 - Risk 60-74 years 1-dose series) 2012 Abdominal Aortic Aneurysm (AAA) Screen 04/07/2022 Colorectal Cancer Screening: Colonoscopy 04/07/2022 Falls Risk Assessment 04/07/2022 Hepatitis C Screening 04/07/2022 Medicare Annual Wellness Visit 04/07/2022 Social Influencers of Health Screening 04/07/2022 Depression Screening 04/29/2024 COVID-19 Vaccine ( season) 2024 03/27/2021, 07/09/2020, 06/11/2020 Influenza Vaccine (#1) 2024 , 01/10/2023, 03/29/2022, Additional history exists Diabetes: Blood Sugar Control Test (HGBA1C) 04/22/2025 10/21/2024, 07/16/2024, 03/31/2024, Additional history exists Diabetes: Annual Urine Albumin-Creatinine Ratio (uACR) 06/24/2025 06/24/2024, 11/22/2023, 11/22/2023, Additional history exists Diabetes: Annual GFR (Glomerular Filtration Rate) 12/30/2025 12/30/2024, 11/11/2024, 11/08/2024, Additional history exists Hypertension/CHF/CAD Annual BMP Blood Test 12/30/2025 12/30/2024, 11/11/2024, 11/08/2024, Additional history exists Cholesterol Screening (Lipid Panel) 11/21/2028 11/22/2023, 11/22/2023, 02/01/2021, Additional history exists DTaP,Tdap,and Td Vaccines (3 - Td or Tdap) 03/14/2030 03/14/2020, 05/31/2016 Zoster Vaccines Completed 03/06/2019, 10/15/2017 Pneumococcal Vaccine: 50+ Years Completed 11/02/2021, 10/15/2017, 05/31/2016 HIB Vaccines Aged Out No longer eligi ble based on patient's age to complete this topic HPV Vaccines Aged Out No longer eligi ble based on patient's age to complete this topic Hepatitis A Vaccines Aged Out No long er eligible based on patient's age to complete this topic Hepatitis B Vaccines Aged Out No long er eligible based on patient's age to complete this topic IPV Vaccines Aged Out No longer eligi ble based on patient's age to complete this topic MMR Vaccines Aged Out No longer eligi ble based on patient's age to complete this topic Meningococcal ACWY Vaccine Aged Out N o longer eligible based on patient's age to complete this topic Meningococcal B Vaccine Aged Out No l onger eligible based on patient's age to complete this topic RSV Immunization Patients Under 20 months Aged Out No longer eligible based on patient's age to complete this topic Varicella Vaccines Aged Out No longer eligible based on patient's age to complete this topic Procedures Procedure Name Priority Date/Time Associated Diagnosis Comments LACTATE DEHYDROGENASE, BODY FLUID STAT 12/30/2024 8:52 PM EDT DIFFERENTIAL BODY FLUID STAT 12/30/2024 8:39 PM EDT GLUCOSE, BODY FLUID STAT 12/30/2024 8 :39 PM EDT CRYSTAL IDENTIFICATION, BODY FLUID STAT 12/30/2024 8:39 PM EDT CELL COUNT WITH REFLEX DIFFERENTIAL, BODY FLUID STAT 12/30/2024 8:39 PM EDT CULTURE BODY FLUID WITH GRAM STAIN STAT 12/30/2024 8:39 PM EDT XR KNEE 4+ VIEWS RIGHT STAT 12/30/2024 7:51 PM EDT URIC ACID STAT Add-on 12/30/2024 6:29 PM EDT SEDIMENTATION RATE STAT Add-on 12/30/2024 6: 29 PM EDT C-REACTIVE PROTEIN STAT Add-on 12/30/2024 6: 29 PM EDT CBC WITH AUTO DIFFERENTIAL STAT 12/30/2024 6:29 PM EDT CBC AND DIFFERENTIAL STAT 12/30/2024 6:29 PM EDT BASIC METABOLIC PANEL STAT 12/30/2024 6:29 PM EDT BD BONE DENSITY DXA AXIAL SKELETON Routine 12/10/2024 8:56 AM EDT Osteopenia, unspecified location ECG ANNOTATED 11/12/2024 ECG ANNOTATED 11/12/2024 CT HEAD WO CONTRAST STAT 11/11/2024 2 :29 PM EDT XR CHEST 2 VIEWS STAT 11/11/2024 1:43 PM EDT RHYTHM ECG, REPORT Routine 11/11/2024 12 :52 PM EDT TROPONIN I HIGH SENSITIVITY Timed 11/11/2024 12:48 PM EDT ECG 12-LEAD STAT 11/11/2024 12:43 PM EDT CBC WITH AUTO DIFFERENTIAL STAT 11/11/2024 11:26 AM EDT B-TYPE NATRIURETIC PEPTIDE STAT 11/11/2024 11:26 AM EDT MAGNESIUM STAT 11/11/2024 11:26 AM EDT LIPASE STAT 11/11/2024 11:26 AM EDT COMPREHENSIVE METABOLIC PANEL STAT 11/11/2024 11:26 AM EDT CBC AND DIFFERENTIAL STAT 11/11/2024 11:26 AM EDT TROPONIN I HIGH SENSITIVITY Timed 11/11/2024 11:26 AM EDT ECG 12-LEAD STAT 11/11/2024 11:25 AM EDT ECG ANNOTATED 11/09/2024 CT ANGIO CHEST/ABDOMEN/PELVIS WO AND/OR W CONTRAST STAT 11/08/2024 4:02 PM EDT Chest pain, unspecified type Hypertension, unspecified type Dizziness Nonintractable headache, unspecified chronicity pattern, unspecified headache type TROPONIN I HIGH SENSITIVITY STAT 11/08/2024 2:27 PM EDT ECG 12-LEAD STAT 11/08/2024 2:19 PM EDT CBC WITH AUTO DIFFERENTIAL STAT 11/08/2024 1:12 PM EDT B-TYPE NATRIURETIC PEPTIDE STAT 11/08/2024 1:12 PM EDT MAGNESIUM STAT 11/08/2024 1:12 PM EDT LIPASE STAT 11/08/2024 1:12 PM EDT COMPREHENSIVE METABOLIC PANEL STAT 11/08/2024 1:12 PM EDT CBC AND DIFFERENTIAL STAT 11/08/2024 1:12 PM EDT TROPONIN I HIGH SENSITIVITY STAT 11/08/2024 1:12 PM EDT ECG 12-LEAD STAT 11/08/2024 1:08 PM EDT VAS US DUPLEX LOWER EXT VENOUS RIGHT STAT 10/13/2024 2:19 PM EDT Pain HM URINE ALBUMIN CREATININE RATIO Routine 11/22/2023 LIPID PANEL Routine 11/22/2023 HEMOGLOBIN A1C Routine 11/11/2023 from Last 3 Months or Most Recently Relevant to Health Maintenance Results * Lactate dehydrogenase, body fluid (12/30/2024 8:52 PM EDT) LD, Fluid 66 See Comment unit/L LAB CHEMISTRY METHOD 12/30/2024 9:27 PM EDT [facility] Unspecified Body Fluid Structure of right knee region / Unknown Non-blood Collection / Unknown 12/30/2024 8:52 PM EDT 12/30/2024 8:53 PM EDT Narrative [facility] - 12/30/2024 9:27 PM EDT No reference ranges have been established for body fluids. Clinical correlation recommended. Isaak Walton MD LAB BODY FLUIDS AND STOOLS ORDER FATMATA Final Result Performing Organization Address [facility]/ZIP Co de Phone Number [facility] [address] [place] [address], [place] [phone] * Cell count with reflex differential, body fluid (12/30/2024 8:39 PM EDT) Body Fluid Total Nucleated Cells 433 /mm3 LAB HEMETOLOGY METHOD 12/30/2024 9:53 PM EDT [facility] Body Fluid RBC 121,000 /mm3 LAB HEMETOLOGY METHOD 12/30/2024 9:53 PM EDT [facility] Body Fluid Color Red 12/30/2024 9:53 PM EDT [facility] Body Fluid Clarity Bloody 12/30/2024 9:53 PM EDT [facility] Body Fluid Source Knee, Right 12/30/2024 9:53 PM EDT [facility] Aspirate Structure of right knee region / Unknown Non-blood Collection / Unknown 12/30/2024 8:39 PM EDT 12/30/2024 8:44 PM EDT Narrative [facility] - 12/30/2024 9:53 PM EDT No reference ranges have been established for body fluids. Clinical correlation recommended. us Isaak Walton MD LAB BODY FLUIDS AND STOOLS ORDER FATMATA Final Result Performing Organization Address City/[facility]/ZIP Co de Phone Number [facility] [address] [place] [address], [place] [phone] * Culture body fluid with gram stain (12/30/2024 8:39 PM EDT) Fluid Culture No growth at 3 days LAB MICROBIOLOGY METHOD 01/02/2025 12:04 PM EDT [facility] Gram Stain Result Few Polymorphonuclear leukocytes 01/02/2025 12:04 PM EDT [facility] Gram Stain Result No epithelial cells seen 01/02/2025 12:04 PM EDT [facility] Gram Stain Result No organisms seen 01/02/2025 12:04 PM EDT [facility] Fine Needle Aspirate Structure of right knee region / Unknown Non-blood Collection / Unknown 12/30/2024 8:39 PM EDT 12/30/2024 8:44 PM EDT us Isaak Walton MD LAB MICROBIOLOGY - GENERAL ORDER FATMATA Final Result [facility] [address] [place] [address], [place] [phone] * Differential body fluid (12/30/2024 8:39 PM EDT) Fluid Neutrophils % 28 % 12/30/2024 9:53 PM EDT [facility] Fluid Lymphocytes % 46 % 12/30/2024 9:53 PM EDT [facility] Fluid Monocytes/Macrop hages 25 % 12/30/2024 9:53 PM EDT [facility] Fluid Eosinophils % 1 % 12/30/2024 9:53 PM EDT [facility] Fluid Basophils % 0 % 12/30/2024 9:53 PM EDT [facility] Fluid Other Cells % 0 % 12/30/2024 9:53 PM EDT [facility] Aspirate Structure of right knee region / Unknown Non-blood Collection / Unknown 12/30/2024 8:39 PM EDT 12/30/2024 8:44 PM EDT Narrative [facility] - 12/30/2024 9:53 PM EDT No reference ranges have been established for body fluids. Clinical correlation recommended. us Isaak Walton MD LAB BODY FLUIDS AND STOOLS ORDER FATMATA Final Result Performing Organization Address [facility]/ZIP Co de Phone Number [facility] [address] [place] [address], [place] [phone] * Body fluid crystal (12/30/2024 8:39 PM EDT) Crystals, Fluid No diagnostic crystals seen No diagnostic crystals seen 12/30/2024 10:01 PM EDT [facility] Synovial Fluid Structure of right knee region / Unknown Non-blood Collection / Unknown 12/30/2024 8:39 PM EDT 12/30/2024 8:44 PM EDT us Isaak Walton MD LAB BODY FLUIDS AND STOOLS ORDER FATMATA Final Result Performing Organization Address [facility] Co de Phone Number [facility] [address] [place] [address], [place] [phone] * Glucose, body fluid (12/30/2024 8:39 PM EDT) Glucose, Fluid 6 See Comment mg/dL LAB CHEMISTRY METHOD 12/30/2024 9:07 PM EDT [facility] Drainage Structure of right knee region / Unknown 12/30/2024 8:39 PM EDT 12/30/2024 8:44 PM EDT Narrative [facility] - 12/30/2024 9:07 PM EDT No reference ranges have been established for body fluids. Clinical correlation recommended. us Isaak Walton MD LAB BODY FLUIDS AND STOOLS ORDER FATMATA Final Result Performing Organization Address [facility] Co de Phone Number [facility] [address] [place] [address], [place] [phone] * XR Knee 4+ Views Right (12/30/2024 7:51 PM EDT) Anatomical Region Laterality Modality Lower Extremities, Knee Right [facility] 12/31/2024 8:45 AM EDT Impressions 12/31/2024 8:45 AM EDT FINDINGS/IMPRESSION: No acute fracture or dislocation. Joint spaces are preserved. Quadriceps and patellar enthesophytes. Prepatellar soft tissue swelling. No joint effusion. -------- FINAL REPORT -------- Dictated By: ARNOLD PELAEZ Dictated Date: 12/31/2024 08:45 ET Assigned Physician: ARNOLD PELAEZ Reviewed and Electronically Signed By: ARNOLD PELAEZ Signed Date: 12/31/2024 08:45 ET Workstation ID: [id number] Transcribed By: Self Edit Transcribed Date: 12/31/2024 08:45 ET Narrative 12/31/2024 8:45 AM EDT XR KNEE 4+ VIEWS RIGHT INDICATION: Pain, swelling TECHNIQUE: XR KNEE 4+ VIEWS RIGHT COMPARISON: No priors available. Procedure Note Arnold Pelaez MD - 12/31/2024 XR KNEE 4+ VIEWS RIGHT INDICATION: Pain, swelling TECHNIQUE: XR KNEE 4+ VIEWS RIGHT COMPARISON: No priors available. IMPRESSION: FINDINGS/IMPRESSION: No acute fracture or dislocation. Joint spaces arepreserved. Quadriceps and patellar enthesophytes. Prepatellar softtissue swelling. No joint effusion. -------- FINAL REPORT -------- Dictated By: ARNOLD PELAEZ Dictated Date: 12/31/2024 08:45 ET Assigned Physician: ARNOLD PELAEZ Reviewed and Electronically Signed By: ARNOLD PELAEZ Signed Date: 12/31/2024 08:45 ET Workstation ID: [id number] Transcribed By: Self Edit Transcribed Date: 12/31/2024 08:45 ET Isaak Walton MD IMG XR PROCEDURES Final Result * (ABNORMAL) CBC auto differential (12/30/2024 6:29 PM EDT) Only the most recent of3 resultswithin the time period is included. WBC 9.3 4.8 - 10.8 K/mcL LAB HEMETOLOGY METHOD 12/30/2024 6:54 PM EDT [facility] RBC 5.00 4.50 - 5.50 M/mcL LAB HEMETOLOGY METHOD 12/30/2024 6:[facility] Hemoglobin 13.7 13.5 - 17.5 g/dL LAB HEMETOLOGY METHOD 12/30/2024 6:54 PM EDT [facility] Hematocrit 43.5 42.0 - 54.0 % LAB HEMETOLOGY METHOD 12/30/2024 6:54 PM [facility] MCV 86.5 79.0 - 98.0 FL LAB HEMETOLOGY METHOD 12/30/2024 6:54 PM [facility] MCH 27.2 27.0 - 32.0 pcg LAB HEMETOLOGY METHOD 12/30/2024 6:54 PM [facility] MCHC 31.5(L) 32.0 - 37.0 g/dL LAB HEMETOLOGY METHOD 12/30/2024 6:54 PM EDT [facility] RDW 13.8 11.0 - 15.0 % LAB HEMETOLOGY METHOD 12/30/2024 6:54 PM [facility] Platelets 224 130 - 400 K/mcL LAB HEMETOLOGY METHOD 12/30/2024 6:54 PM EDT [facility] MPV 10.7 7.0 - 11.0 FL LAB HEMETOLOGY METHOD 12/30/2024 6:54 PM [facility] NRBC 0.0 <1.0 % LAB HEMETOLOGY METHOD 12/30/2024 6:54 PM [facility] NRBC Absolute 0.00 <0.10 K/mcL LAB HEMETOLOGY METHOD 12/30/2024 6:54 PM EDT [facility] Neutrophils Relative 63.2 % LAB HEMETOLOGY METHOD 12/30/2024 6:54 PM [facility] Lymphocytes Relative 21.9 % LAB HEMETOLOGY [...] 6:54 PM [facility] Lymphocytes Absolute 2.04 1.00 - 5.00 K/mcL LAB HEMETOLOGY METHOD 12/30/2024 6:54 PM [facility] Monocytes Absolute 1.06(H) 0.20 - 1.00 K/mcL LAB HEMETOLOGY METHOD 12/30/2024 6:54 PM [facility] Eosinophils Absolute 0.25 0.00 - 0.50 K/mcL LAB HEMETOLOGY METHOD 12/30/2024 6:54 PM [facility] Basophils Absolute 0.05 0.00 - 0.20 K/mcL LAB HEMETOLOGY METHOD 12/30/2024 6:54 PM [facility] Immature Granulocytes Absolute 0.03 0.00 - 0.03 K/mcL LAB HEMETOLOGY METHOD 12/30/2024 6:54 PM [facility] Blood Venous blood specimen / Unknown Venipuncture / Unknown 12/30/2024 6:29 PM EDT 12/30/2024 6:43 PM EDT Isaak Walton MD LAB BLOOD ORDERABLES Final Resul t Performing Organization Address [facility]/ZIP Co de Phone Number [facility] [address] [place] [address], [place] [phone] * (ABNORMAL) Sedimentation rate, automated (12/30/2024 6:29 PM EDT) [facility] Sed Rate 36(H) 0 - 20 mm/hr LAB HEMETOLOGY METHOD 12/30/2024 7:40 PM EDT [facility] Blood Venous blood specimen / Unknown Venipuncture / Unknown 12/30/2024 6:29 PM EDT 12/30/2024 6:43 PM EDT Juan Chance MD LAB BLOOD ORDERABLES Fin al Result Performing Organization Address [facility] de Phone Number [facility] [address] [place] [address], [place] [phone] * (ABNORMAL) C-reactive protein (12/30/2024 6:29 PM EDT) [facility] [facility] C-Reactive Protein 1.09(H) <=0.50 mg/dL LAB CHEMISTRY METHOD 12/30/2024 7:51 PM EDT [facility] Blood Venous blood specimen / Unknown Venipuncture / Unknown 12/30/2024 6:29 PM EDT 12/30/2024 6:43 PM EDT Juan Chance MD LAB BLOOD ORDERABLES Fin al Result Performing Organization Address [facility] Co de Phone Number [facility] [address] [place] [address], [place] [phone] * Uric acid (12/30/2024 6:29 PM EDT) [facility] Uric Acid 5.9 3.7 - 9.2 mg/dL LAB CHEMISTRY METHOD 12/30/2024 7:51 PM [facility] Blood Venous blood specimen / Unknown Venipuncture / Unknown 12/30/2024 6:29 PM EDT 12/30/2024 6:43 PM EDT us Isaak Walton MD LAB BLOOD ORDERABLES Final Resul t [facility] [address] [place] [address], * (ABNORMAL) Basic metabolic panel (12/30/2024 6:29 PM EDT) [facility] Sodium 140 133 - 145 mmol/L LAB [...] 7:07 PM [facility] eGFR 38(L) >=60 mL/min/1. 73m2 LAB CHEMISTRY METHOD 12/30/2024 7:07 PM EDT [facility] Comment:Calculation based on the Chronic Kidney Disease Epidemiology Collaboration (CKD-EPI) equation refit without adjustment for race. BUN/Creatinine Ratio 16.8 LAB CHEMISTRY METHOD 12/30/2024 7:07 PM EDT [facility] Calcium 9.5 8.5 - 10.5 mg/dL LAB CHEMISTRY METHOD 12/30/2024 7:07 PM EDT [facility] Blood Venous blood specimen / Unknown Venipuncture / Unknown 12/30/2024 6:29 PM EDT 12/30/2024 6:43 PM EDT us Isaak Walton MD LAB BLOOD ORDERABLES Final Resul t [facility] [address] [place] [address], * BD Bone Density DXA Axial Skeleton (12/10/2024 8:56 AM EDT) Anatomical Region Laterality Modality Wrist, Hip, L-spine Bone Densito metry 12/10/2024 9:34 AM EDT Impressions 12/10/2024 9:36 AM EDT 1. Osteopenia. There has been an increase of 10.3% in bone mineral density in the lumbar spine since the prior examination of 02/16/2014. There has been a decrease of 0.6% in bone mineral density in the right femur and an increase of 0.1% in bone mineral density in the left femur. 2. FRAX analysis yields a 10-year probability of major osteoporotic fracture of 3.6% and a 10-year probability of hip fracture of 0.8%. Code 87446 -------- FINAL REPORT -------- Dictated By: Miguel Angel Gomez Dictated Date: 12/10/2024 09:34 ET Assigned Physician: Miguel Angel Gomez Reviewed and Electronically Signed By: Miguel Angel Gomez Signed Date: 12/10/2024 09:36 ET Workstation ID: [id number] Transcribed By: Self Edit Transcribed Date: 12/10/2024 09:34 ET Narrative 12/10/2024 9:36 AM EDT HISTORY: The patient is a 74-year-old diabetic male smoker with clinical concern for metabolic bone disease. FINDINGS: Dual energy x-ray absorptiometry of the lumbar spine and femurs is performed. The mean bone mineral density at L1-L4 (with the exclusion of L3) is 1.365 gm/cm2 which is 113% of that of young normals and 125% of that of age matched controls. This yields a T-score of 1.3 and a Z-score of 2.3 and there is therefore no evidence of osteoporosis or osteopenia here. The mean bone mineral density of the femurs bilaterally is 1.075 gm/cm2 which is 98% of that of young normals and 113% of that of age matched controls. This yields a T-score of -0.2 and a Z-score of 0.9 and there is therefore no evidence of osteoporosis or osteopenia here. However, the T-score of the right femoral neck is -1.3 and that of the left femoral neck is -1.4 which is diagnostic of osteopenia. Procedure Note Miguel Angel Gomez MD - 12/10/2024 HISTORY: The patient is a 74-year-old diabetic male smoker with clinicalconcern for metabolic bone disease. FINDINGS: Dual energy x-ray absorptiometry of the lumbar spine and femursis performed. The mean bone mineral density at L1-L4 (with the exclusionof L3) is 1.365 gm/cm2 which is 113% of that of young normals and 125% ofthat of age matched controls. This yields a T-score of 1.3 and a Z-scoreof 2.3 and there is therefore no evidence of osteoporosis or osteopeniahere. The mean bone mineral density of the femurs bilaterally is 1.075 gm/wn4taqmm is 98% of that of young normals and 113% of that of age matchedcontrols. This yields a T-score of -0.2 and a Z-score of 0.9 and there istherefore no evidence of osteoporosis or osteopenia here. However, theT-score of the right femoral neck is -1.3 and that of the left femoralneck is -1.4 which is diagnostic of osteopenia. IMPRESSION: 1. Osteopenia. There has been an increase of 10.3% in bone mineraldensity in the lumbar spine since the prior examination of 02/16/2014.There has been a decrease of 0.6% in bone mineral density in the rightfemur and an increase of 0.1% in bone mineral density in the left femur. 2. FRAX analysis yields a 10-year probability of major osteoporoticfracture of 3.6% and a 10-year probability of hip fracture of 0.8%. Code 65397 -------- FINAL REPORT -------- Dictated By: Miguel Angel Gomez Dictated Date: 12/10/2024 09:34 ET Assigned Physician: Miguel Angel Gomez Reviewed and Electronically Signed By: Miguel Angel Gomez Signed Date: 12/10/2024 09:36 ET Workstation ID: [id number] Transcribed By: Self Edit Transcribed Date: 12/10/2024 09:34 ET Zahira COATES IMG DXA PROCEDURES Fin al Result * ECG-Annotated (11/12/2024) Only the most recent of3 resultswithin the time period is included. Provider Onbase MD ECG ORDERABLES Final Result * CT Head wo Contrast (11/11/2024 2:29 PM EDT) Anatomical Region Laterality Modality Head and Neck Computed Tomogra phy 11/11/2024 3:03 PM EDT Impressions 11/11/2024 3:06 PM EDT Impression: No acute hemorrhage or intracranial mass effect. No significant change. Hardy COATES ([id number]) -------- FINAL REPORT -------- Dictated By: Katelyn Bruce Dictated Date: 11/11/2024 15:03 ET Assigned Physician: Katelyn Bruce Reviewed and Electronically Signed By: Katelyn Bruce Signed Date: 11/11/2024 15:06 ET Workstation ID: [id number] Transcribed By: Self Edit Transcribed Date: 11/11/2024 15:03 ET Narrative 11/11/2024 3:06 PM EDT History: Dizziness. Comparison: 03/22/19 Technique: Contiguous axial images were obtained at 2.5 mm intervals through the posterior fossa and at 5 mm intervals through the remainder of the brain without intravenous contrast. DLP: 808.85 mGy/cm GE LightSpeed VCT Iterative reconstruction technique Findings: Mild to moderate generalized cerebral volume loss is probably within normal limits for the stated age. Merchant-white differentiation is maintained. No abnormal intra- or extra-axial masses or fluid collections are seen. There is no evidence of acute intracranial hemorrhage. Minimal mucoperiosteal thickening is seen within the paranasal sinuses. The mastoid air cells are clear. The calvarium is intact. Procedure Note Katelyn Bruce MD - 11/11/2024 History: Dizziness. Comparison: 03/22/19 Technique: Contiguous axial images were obtained at 2.5 mm intervalsthrough the posterior fossa and at 5 mm intervals through the remainder ofthe brain without intravenous contrast. DLP: 808.85 mGy/cm GE LightSpeed VCT Iterative reconstruction technique Findings: Mild to moderate generalized cerebral volume loss is probably withinnormal limits for the stated age. Merchant-white differentiation ismaintained. No abnormal intra- or extra-axial masses or fluid collectionsare seen. There is no evidence of acute intracranial hemorrhage. Minimal mucoperiosteal thickening is seen within the paranasal sinuses.The mastoid air cells are clear. The calvarium is intact. IMPRESSION: Impression: No acute hemorrhage or intracranial mass effect. No significant change. Telerad PA ([id number]) -------- FINAL REPORT -------- Dictated By: Katelyn Bruce Dictated Date: 11/11/2024 15:03 ET Assigned Physician: Katelyn Bruce Reviewed and Electronically Signed By: Katelyn Bruce Signed Date: 11/11/2024 15:06 ET Workstation ID: [id number] Transcribed By: Self Edit Transcribed Date: 11/11/2024 15:03 ET us Best Huerta MD IMG CT PROCEDURES Final Resul t * XR Chest 2 Views (11/11/2024 1:43 PM EDT) Anatomical Region Laterality Modality Body Radiographic Meaghan ging 11/11/2024 1:47 PM EDT Impressions 11/11/2024 1:48 PM EDT Impression: Stable radiographic appearance of the chest. No active pulmonary process identified. Telerad PA ([id number]) -------- FINAL REPORT -------- Dictated By: Katelyn Bruce Dictated Date: 11/11/2024 13:47 ET Assigned Physician: Katelyn Bruce Reviewed and Electronically Signed By: Katelyn Bruce Signed Date: 11/11/2024 13:48 ET Workstation ID: [id number] Transcribed By: Self Edit Transcribed Date: 11/11/2024 13:47 ET Narrative 11/11/2024 1:48 PM EDT History: Chest pain. Comparison: 05/14/24 Findings: PA and lateral views. This is a suboptimal inspiration, accentuating cardiac size. Hilar contours and pulmonary vascularity are within normal limits. The lungs are clear. The costophrenic angles are sharp. Flowing hyperostosis is seen along the anterior aspect of the spine. Procedure Note Katelyn rBuce MD - 11/11/2024 History: Chest pain. Comparison: 05/14/24 Findings: PA and lateral views. This is a suboptimal inspiration, accentuatingcardiac size. Hilar contours and pulmonary vascularity are within normallimits. The lungs are clear. The costophrenic angles are sharp. Flowing hyperostosis is seen along the anterior aspect of the spine. IMPRESSION: Impression: Stable radiographic appearance of the chest. No active pulmonary processidentified. Telerad PA ([id number]) -------- FINAL REPORT -------- Dictated By: Katelyn Bruce Dictated Date: 11/11/2024 13:47 ET Assigned Physician: Katelyn Bruce Reviewed and Electronically Signed By: Katelyn Bruce Signed Date: 11/11/2024 13:48 ET Workstation ID: [id number] Transcribed By: Self Edit Transcribed Date: 11/11/2024 13:47 ET us Best Huerta MD IMG XR PROCEDURES Final Resul t * RHYTHM ECG, REPORT (11/11/2024 12:52 PM EDT) Best Rios MD - 11/11/2024 12:52 PM EDT Best Huerta MD 11/11/2024 5:06 PM ECG Rhythm Interpretation and Report Date/Time: 11/11/2024 12:52 PM Performed by: Best Huerta MD Authorized by: Best Huerta MD ECG interpreted by ED Physician in the absence of a keyboard operator: yes Previous ECG: Previous ECG: Compared to current Similarity: No change Comparison ECG info: 11/08/24 Interpretation: Interpretation: non-specific Rhythm: Rhythm: sinus bradycardia QRS: QRS axis: Normal ST segments: ST segments: Normal T waves: T waves: inverted Inverted: V4, V5 and V6 Best Huerta MD ECG ORDERABLES Final Result * Troponin I high sensitivity (11/11/2024 12:48 PM EDT) Only the most recent of4 resultswithin the time period is included. [facility] High Sensitivity Troponin I 9 <=79 ng/L LAB CHEMISTRY METHOD 11/11/2024 2:35 PM EDT [facility] Blood Venous blood specimen / Unknown Venipuncture / Unknown 11/11/2024 12:48 PM EDT 11/11/2024 1:57 PM EDT Narrative [facility] - 11/11/2024 2:35 PM EDT High levels of biotin in samples may falsely decrease hsTroponin values. Use caution when interpreting hsTroponin results in patients taking biotin who exhibit renal impairment (eGFR <60) or in patients taking more than 20 mg/day of biotin. Best Huerta MD LAB BLOOD ORDERABLES Final Re sult [facility] [address] [place] [address], [place] [phone] * ECG 12 lead (11/11/2024 12:43 PM EDT) Only the most recent of4 resultswithin the time period is included. [facility] Ventricular Rate ECG 59 BPM GEMUSE Atrial Rate 59 BPM GEMUSE P-R Interval 166 ms GEMUSE QRS Duration 88 ms GEMUSE Q-T Interval 430 ms GEMUSE QTc 425 ms GEMUSE P Wave [place] 53 degrees GEMUSE R [place] -44 degrees GEMUSE T [place] 134 degrees GEMUSE ECG Interpretation Sinus bradycardia Left axis deviation Pulmonary disease pattern ST and T wave abnormality, consider lateral ischemia Abnormal ECG When compared with ECG of 11-NOV-2024 11:25, (unconfirmed) No significant change was found Confirmed by Matias BOYCE JOHN ([id number]) on 11/12/2024 4:42:18 PM GEMUSE 11/11/2024 12:4 3 PM EDT 11/12/2024 4:42 PM EDT us Best Huerta MD ECG ORDERABLES Final Result Performing Organization Address City/[facility]/ZIP Co de Phone Number GEMUSE * B-type natriuretic peptide (11/11/2024 11:26 AM EDT) Only the most recent of2 resultswithin the time period is included. [facility] BNP 89 <=100 pcg/mL LAB CHEMISTRY METHOD 11/11/2024 12:20 PM EDT [facility] Blood Venous blood specimen / Unknown Venipuncture / Unknown 11/11/2024 11:26 AM EDT 11/11/2024 11:33 AM EDT us Best Huerta MD LAB BLOOD ORDERABLES Final Re sult [facility] [address] [place] [address], [place] [phone] * Magnesium (11/11/2024 11:26 AM EDT) Only the most recent of2 resultswithin the time period is included. [facility] Magnesium 2.1 1.9 - 2.6 mg/dL LAB CHEMISTRY METHOD 11/11/2024 12:17 PM EDT [facility] Blood Venous blood specimen / Unknown Venipuncture / Unknown 11/11/2024 11:26 AM EDT 11/11/2024 11:33 AM EDT us Best Huerta MD LAB BLOOD ORDERABLES Final Re sult Performing Organization Address [facility]/ZIP Co de Phone Number [facility] [address] [place] [address], [place] [phone] * Lipase (11/11/2024 11:26 AM EDT) Only the most recent of2 resultswithin the time period is included. [facility] Lipase 37 13 - 75 unit/L LAB CHEMISTRY METHOD 11/11/2024 12:17 PM EDT [facility] Blood Venous blood specimen / Unknown Venipuncture / Unknown 11/11/2024 11:26 AM EDT 11/11/2024 11:33 AM EDT us Best Huerta MD LAB BLOOD ORDERABLES Final Re sult Performing Organization Address [facility] Co de Phone Number [facility] [address] [place] [address], [place] [phone] * (ABNORMAL) Comprehensive metabolic panel (11/11/2024 11:26 AM EDT) Only the most recent of2 resultswithin the time period is included. [facility] Sodium 140 133 - 145 mmol/L LAB CHEMISTRY METHOD 11/11/2024 12:17 PM EDT [facility] Potassium 5.0 3.5 - 5.5 mmol/L LAB CHEMISTRY METHOD 11/11/2024 12:17 PM EDT [facility] Chloride 108 96 - 110 mmol/L LAB CHEMISTRY METHOD 11/11/2024 12:17 PM [facility] CO2 28 21 - 32 mmol/L LAB CHEMISTRY METHOD 11/11/2024 12:17 PM [facility] Anion Gap 4 3 - 11 LAB CHEMISTRY METHOD 11/11/2024 12:17 PM [facility] Glucose 224(H) 70 - 100 mg/dL LAB CHEMISTRY METHOD 11/11/2024 12:17 PM [facility] BUN 26(H) 5 - 25 mg/dL LAB CHEMISTRY METHOD 11/11/2024 12:17 PM [facility] Creatinine 1.79(H) 0.70 - 1.30 mg/dL LAB CHEMISTRY METHOD 11/11/2024 12:17 PM [facility] eGFR 40(L) >=60 mL/min/1. 73m2 LAB CHEMISTRY METHOD 11/11/2024 12:17 PM [facility] Comment:Calculation based on the Chronic Kidney Disease Epidemiology Collaboration (CKD-EPI) equation refit without adjustment for race. BUN/Creatinine Ratio 14.5 LAB CHEMISTRY METHOD 11/11/2024 12:17 PM [facility] Calcium 9.0 8.5 - 10.5 mg/dL LAB CHEMISTRY METHOD 11/11/2024 12:17 [facility] AST (SGOT) 18 10 - 42 unit/L LAB CHEMISTRY METHOD 11/11/2024 12:17 [facility] ALT (SGPT) 34 10 - 60 unit/L LAB CHEMISTRY METHOD 11/11/2024 12:17 PM [facility] Alkaline Phosphatase 85 42 - 121 unit/L LAB CHEMISTRY METHOD 11/11/2024 12:17 PM [facility] Total Protein 6.7 6.0 - 8.0 g/dL LAB CHEMISTRY METHOD 11/11/2024 12:17 PM [facility] Albumin 3.5 3.2 - 5.0 g/dL LAB CHEMISTRY METHOD 11/11/2024 12:17 PM EDT [facility] Total Bilirubin 0.5 0.0 - 1.4 mg/dL LAB CHEMISTRY METHOD 11/11/2024 12:17 PM EDT [facility] Blood Venous blood specimen / Unknown Venipuncture / Unknown 11/11/2024 11:26 AM EDT 11/11/2024 11:33 AM EDT us Best Huerta MD LAB BLOOD ORDERABLES Final Re sult [facility] [address] [place] [address], [place] [phone] * CT Angio Chest/Abdomen/Pelvis wo and/or w Contrast (11/08/2024 4:02 PM EDT) Anatomical Region Laterality Modality Body Computed Tomogra phy 11/08/2024 4:55 PM EDT Impressions 11/08/2024 4:55 PM EDT Impression: Negative for pulmonary embolus. Thoracic and abdominal aorta caliber is normal with no aneurysm or dissection Athero sclerotic calcified and soft plaque is present in the infrarenal abdominal aorta. This document has been electronically signed by: Ashwin De Los Santos MD on 11/08/2024 16:55:59 Narrative 11/08/2024 4:55 PM EDT INDICATION: Abdominal pain, aortic dissection suspected CT angiography chest , CTA abdomen CTA pelvis with and withoutbolus IV contrast injection. 3-D postprocessing, MIPs and MPRs : Comparison: None Findings: CTA CHEST: Normal thoracic aorta and branch vessels. Heart size is mildly enlarged. Left and right pulmonary arteries are segmentally enlarged reflecting increased pulmonary artery pressures. RV/LV ratio normal. No pericardial effusion. Aortic root diameter is 3.3 cm. Athero sclerotic calcification is located in circumflex right coronary and LAD. The sino-tubular junction diameter is 2.5 cm. Mid ascending aorta diameter is 2.4 x 2.5 cm. The aortic arch diameter is 2.7 cm. The aortic branch vessels are perfused without stenosis. Proximal descending aorta diameter is 2.7 cm. Mid descending aorta diameter is 2.7 cm. Diaphragmatic aorta diameter is 2.5 cm. CTA abdomen with bolus contrast: Celiac aorta diameter is 2.2 cm. Hepatic and renal arteries are normal. Superior mesenteric artery aortic diameter is 1.8 cm. Small and large bowel branches are perfused Renal artery aorta diameter is 1.9 cm. There are 2 right renal arteries and 2 left renal arteries with symmetric perfusion of both kidneys. Infrarenal abdominal aorta diameter is 1.8 cm. Mid abdominal aorta diameter is 1.8 cm. There is a small amount of soft plaque or thrombus anteriorly. Inferior mesenteric artery is perfused Distal abdominal aorta diameter is 1.9 cm. Left common iliac artery diameter is 9.2 mm. Right common iliac artery diameter is 9.6 mm. Normal lungs. No acute fractures. The liver density is homogeneous No biliary abnormalities Normal in size spleen No pancreatic ductal dilatation No hydronephrosis there is a benign 5 cm left renal cortical cyst. A benign left renal 2 cm exophytic cyst is present. Normal bowel caliber No signs of appendicitis. No free fluid/free air Aorta and vena cava diameters are normal No adenopathy CTA PELVIS with contrast: Bladder outline is smooth. There is mild symmetric enlargement of the prostate gland. No suspicious skeletal lesions. Dorsal lumbar intervertebral disc spaces are unremarkable. Vertebral bodies and facet joints are unremarkable. No hernias or soft tissue defects. Procedure Note Ashwin De Los Santos MD - 11/08/2024 INDICATION: Abdominal pain, aortic dissection suspected CT angiography chest , CTA abdomen CTA pelvis with and withoutbolus IV contrast injection. 3-D postprocessing, MIPs and MPRs : Comparison: None Findings: CTA CHEST: Normal thoracic aorta and branch vessels. Heart size is mildly enlarged. Left and right pulmonary arteries are segmentally enlarged reflecting increased pulmonary artery pressures. RV/LV ratio normal. No pericardial effusion. Aortic root diameter is 3.3 cm. Athero sclerotic calcification islocated in circumflex right coronary and LAD. The sino-tubular junction diameter is 2.5 cm. Mid ascending aortadiameter is 2.4 x 2.5 cm. The aortic arch diameter is 2.7 cm. The aortic branch vessels areperfused without stenosis. Proximal descending aorta diameter is 2.7 cm. Mid descending aorta diameter is 2.7 cm. Diaphragmatic aorta diameter is 2.5 cm. CTA abdomen with bolus contrast: Celiac aorta diameter is 2.2 cm. Hepatic and renal arteries are normal. Superior mesenteric artery aortic diameter is 1.8 cm. Small and large bowel branches are perfused Renal artery aorta diameter is 1.9 cm. There are 2 right renal arteries and 2 left renal arteries with symmetric perfusion of both kidneys. Infrarenal abdominal aorta diameter is 1.8 cm. Mid abdominal aorta diameter is 1.8 cm. There is a small amount of soft plaque or thrombus anteriorly. Inferior mesenteric artery is perfused Distal abdominal aorta diameter is 1.9 cm. Left common iliac artery diameter is 9.2 mm. Right common iliac artery diameter is 9.6 mm. Normal lungs. No acute fractures. The liver density is homogeneous No biliary abnormalities Normal in size spleen No pancreatic ductal dilatation No hydronephrosis there is a benign 5 cm left renal cortical cyst. A benign left renal 2 cm exophytic cyst is present. Normal bowel caliber No signs of appendicitis. No free fluid/free air Aorta and vena cava diameters are normal No adenopathy CTA PELVIS with contrast: Bladder outline is smooth. There is mild symmetric enlargement of the prostate gland. No suspicious skeletal lesions. Dorsal lumbar intervertebral disc spaces are unremarkable. Vertebral bodies and facet joints are unremarkable. No hernias or soft tissue defects. IMPRESSION: Impression: Negative for pulmonary embolus. Thoracic and abdominal aorta caliber is normal with no aneurysm or dissection Athero sclerotic calcified and soft plaque is present in the infrarenal abdominal aorta. This document has been electronically signed by: Ashwin De Los Santos MD on 11/08/2024 16:55:59 us Juan Daniel Mai MD IMG CT PROCEDURES Final Result * Vascular US Duplex Lower Extremity Venous Right (10/13/2024 2:19 PM EDT) Anatomical Region Laterality Modality Vascular, Abdomen Ultrasound 10/13/2024 2:47 PM EDT Impressions 10/13/2024 2:47 PM EDT Impression: No evidence of deep vein thrombosis in the right femoral-popliteal venous segment. Hardy COATES ([id number]) -------- FINAL REPORT -------- Dictated By: Katelyn Bruce Dictated Date: 10/13/2024 14:47 ET Assigned Physician: Katelyn Bruce Reviewed and Electronically Signed By: Katelyn Bruce Signed Date: 10/13/2024 14:47 ET Workstation ID: [id number] Transcribed By: Self Edit Transcribed Date: 10/13/2024 14:47 ET Narrative 10/13/2024 2:47 PM EDT History: Right lower extremity pain. Findings: Duplex and color Doppler imaging of the deep venous system of the right lower extremity was performed from the inguinal ligament to the popliteal fossa. The common femoral, femoral and popliteal veins are patent and compress completely. Normal spontaneous and phasic venous flow is demonstrated with Doppler. Normal flow augmentation with calf compression is demonstrated. The deep calf veins, as visualized, are compressible. Procedure Note Katelyn Bruce MD - 10/13/2024 History: Right lower extremity pain. Findings: Duplex and color Doppler imaging of the deep venous system of the rightlower extremity was performed from the inguinal ligament to the poplitealfossa. The common femoral, femoral and popliteal veins are patent andcompress completely. Normal spontaneous and phasic venous flow isdemonstrated with Doppler. Normal flow augmentation with calf compressionis demonstrated. The deep calf veins, as visualized, are compressible. IMPRESSION: Impression: No evidence of deep vein thrombosis in the right femoral-popliteal venoussegment. Hardy COATES ([id number]) -------- FINAL REPORT -------- Dictated By: Katelyn Bruce Dictated Date: 10/13/2024 14:47 ET Assigned Physician: Katelyn Bruce Reviewed and Electronically Signed By: Katelyn Bruce Signed Date: 10/13/2024 14:47 ET Workstation ID: [id number] Transcribed By: Self Edit Transcribed Date: 10/13/2024 14:47 ET Edwina COATES CV VASCULAR PROCEDURES F inal Result * Urine Albumin Creatinine Ratio (11/22/2023) Urine Albumin Creatinine Ratio abstracted Historical Provider HEALTH MAINTENANCE Final Result * Lipid panel (11/22/2023) LDL/HDL Ratio 0 Comment:no interpretation, a bstracted Triglycerides 0 mg/dL Comment:no interpretation, a bstracted Cholesterol 0 mg/dL Comment:no interpretation, a bstracted HDL 0 mg/dL Comment:no interpretation, a bstracted LDL Cholesterol 0 mg/dL Comment:no interpretation, a bstracted Blood Venous blood specimen / Unknown Historical Provider MD LAB BLOOD ORDERABLES Rachel l Result * Hemoglobin A1c (11/11/2023) Hemoglobin A1C 0.0 % Comment:no interpretation, a bstracted Blood Venous blood specimen / Unknown [facility] Provider LAB BLOOD ORDERABLES Rachel l Result from Last 3 Months or Most Recently Relevant to Health Maintenance Insurance [facility] MEDIC[facility] Member Subscriber Plan / Payer (Ef fective 2022-Present) Name:Sean Beavers Relation to Subscriber:Self Name:Sean Beavers Payer ID:[id number] Group ID:[id number] Type:Not on file Address: [place] [address] [address] [address] 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
--- OUTSIDE RECORDS SUMMARY | 2025-01-04 20:37 | XMS_ITS ---
Author Name [facility] Organization Unknown Encounters Encounter Type Encounter Reason Primary Diagnosis Location Date Ambulatory [facility] [place] 03/09/2024
--- OUTSIDE RECORDS SUMMARY | 2025-01-04 20:38 | XMS_ITS | Clinical Summary ---
Author Organization [facility], Address [address] [place] [address] [place] [address] Phone Care Team Providers Care Chief General Pediatric Clinic Name Role Phone Zahira Ngo PA-C Primary Care Provider [phone]- [phone] Allergies No known active allergies Medications atorvastatin (LIPITOR) 80 MG tablet Take 80 mg by mouth 6 Active clopidogrel (PLAVIX) 75 MG tablet Take 75 mg by mouth 8 Active insulin glargine (Lantus SoloStar) 100 UNIT/ML injection Inject 60 Units under the skin 0 Active Insulin Lispro, 1 Unit Dial, (HumaLOG KWIKPEN) 100 UNIT/ML solution pen-injector Comments: Filled Date: Jun 18 2016 12:00AM Patient Notes: INYECTAR 14 UNIDADES ANTES DEL DESAYUNO,16-20 UNI ANTES DEL ALMUERZO Y 34 UNIDADES ANTES DE LA GUIDE DOG INSTRUCTOR Duration: 6 Active isosorbide mononitrate (IMDUR) 30 MG 24 hr tablet TOME WEI TABLETA TODOS LOS GRUBBS EN LA MANANA 0 Active linaGLIPtin (Tradjenta) 5 MG tablet Take 1 tablet by mouth 0 Active metoprolol succinate XL (TOPROL-XL) 25 MG 24 hr tablet Take 25 mg by mouth Take 1 tablet by mouth twice a day 7 Active mirtazapine (REMERON) 45 MG tablet Comments: Filled Date: Jun 18 2016 12:00AM Patient Notes: TOME WEI TABLETA POR VIA ORAL TODOS LOS GRUBBS AL ACOSTARSE Duration: 30 7 Active nitroglycerin (NITROSTAT) 0.[address] 0.3 mg under the tongue 8 Active orphenadrine (NORFLEX) 100 MG 12 hr tablet Comments: Filled Date: May 31 2016 12:00AM Patient Notes: TAWANDA CARVAJAL TABLETA POR VIA ORAL AL ACOSTARSE NEEDED FOR MUSCLE SPASMS OR PAIN Duration: 30 7 Active Cholecalciferol (Vitamin D3) 25 MCG (1000 UT) capsule Take by mouth Active acetaminophen (TYLENOL) 500 MG tablet Take by mouth every 6 (six) hours if needed for mild pain Active aspirin (ST ALDO) 81 MG EC tablet Take 81 mg by mouth 1 (one) time each day Active loratadine (CLARITIN) 10 MG tablet Take 10 mg by mouth 1 (one) time each day Active escitalopram (LEXAPRO) 5 MG tablet Take 5 mg by mouth 1 (one) time each day in the morning 2 Active metoprolol tartrate 25 MG tablet Take 25 mg by mouth 2 Active polyethylene glycol (GLYCOLAX) 17 g packet Take 17 g by mouth 1 (one) time each day Active tamsulosin (FLOMAX) 0.4 MG 24 hr capsule Take 0.4 mg by mouth 1 (one) time each day Active ezetimibe (ZETIA) 10 MG tablet TOME WEI TABLETA TODOS LOS D AL ACOSTARSE 3 Active Ascorbic Acid (vitamin C) 500 MG tablet TAKE 1 TABLET BY MOUTH ONCE DAILY WITH IRON SUPPLEMENT 3 Active NovoLOG FLEXPEN 100 UNIT/ML injection 4 Active Insulin Disposable Pump (Omnipod 5 G6 Pod, Gen 5,) [facility] 4 Active Dapagliflozin Propanediol 10 MG tablet Take 10 mg by mouth every morning 4 Active gabapentin (NEURONTIN) 100 MG capsule Take 3 capsules (300 mg total) by mouth 1 (one) time each day 30 capsule 5 Active Active Problems Problem Noted Date Diagnosed Date Pain in left hip 10/02/2022 Renal disorder due to type 2 diabetes mellitus 0 09/24/2019 Hypertensive heart and renal disease with (congestive) heart failure 09/23/2019 Chronic kidney disease stage 3B 07/14/2015 Overview (10/02/2022): Managed by Dr Ch, immigration officer 10/13/15, routine f/u for CKD stage 3m [...] in 6 months. Update for Diagnosis Load Managed by Dr Ch, immigration officer 10/13/15, routine f/u for CKD stage 3m [...] in 6 months. Update for Diagnosis Load Essential hypertension 07/14/2015 Type 2 diabetes mellitus Resolved Problems Problem Noted Date Diagnosed Date Resolved Date Cyst of kidney 09/23/2019 09/28/2020 Hyperkalemia 09/23/2019 09/23/2019 Coronary arteriosclerosis 05/14/2017 Overview (09/23/2019): Admitted to [facility] 05/01/17 and underwent cardiac cath with stent placement x 1. Discharged on Plavix 75 mg QD, Isosorbide Mononitrate 30 mg, and NTG. D/t obstructive lesion in Left circumflex artery. Recommended dual antiplatelet therapy with Plavix and ASA for 1 year. 05/18/17 [facility] ED for CP. Work up negative. Given Tramadol and advised f/u with PCP 06/10/17 [facility] ED admitted for CP. 08/26/17 F/u [facility]. S/o TYSHAWN to circumflex in Apr 2017. Advised cont ASA and Plavix dual therapy for 1 year. Cont hydralazine, Imdur, lisinopril, metoprolol, high intensity statin. F/u 6 months Followed by [employer] Dr. Bowling. Benign paroxysmal positional vertigo 07/14/2015 09/23/2019 Chronic headache disorder 07/14/2015 Overview (09/23/2019): ED visit to [facility] 03/14/15, rec'd CT of head with no abnormalities. Gastroesophageal reflux disease 07/14/2015 09/23/2019 Hyperlipidemia 07/14/2015 09/23/2019 Iron deficiency anemia 07/14/201509/28 Mixed anxiety and depressive disorder 07/14/2015 09/23/2019 Overview (09/23/2019): Managed by psychiatrist and therapist at [facility]. Pt takes mirtazapine 45mg qHS, Celexa 40mg 1 tab PO QD, hydroxyzine 50mg 1 tab PO QID PRN. Osteopenia 07/14/2015 09/23/2019 Overview (09/23/2019): DEXA scane 06/15/11 T score -0.1 of spine, -0.3 of femur. T score = -1.6 Impression: moderately low bone mineral density. Moderate fracture risl. Encounters Date Type Department Care Team Description 11/05/2024 11:10 AM EDT Office Visit [facility], [address] [place] [address] Emery Hayes MD Chronic kidney disease stage 3B (HCC) (Primary Dx) from Last 3 Months Immunizations Immunization Administration Dates Next Due Influenza Split High Dose Preservative Free IM 0 01/16/2019 Influenza Vaccine, Quadrivalent, Adjuvanted 12/29 Influenza, Unspecified 02/01/2021,02/01/2021 Moderna SARS-COV-2 07/09/2020,06/11/2020 Pneumococcal Polysaccharide 11/02/2021 Tdap 03/14/2020,05/31/2016 Family History Medical History Relation Comments Heart disease Father Diabetes Mother Hypertension Mother Diabetes Sibling 1 Diabetes Sibling 2 sister Heart disease Sibling 3 sister Relation Status Comments Father Mother Unknown Sibling 1 Sibling 2 Sibling 3 Social History Tobacco Use Types Packs/Day Years Used Date Smoking Tobacco: Former Comments:Smoking History Inf o:Some days Alcohol Use Standard Drinks/Week Comments No 0 (1 standard drink = 0.6 oz pur e alcohol) Sex and Gender Information Value Date Recorded Sex Assigned at Not on file Legal Sex Male 4:34 PM EST Gender Identity Not on file Sexual Orientation Not on file Last Filed Vital Signs Vital Sign Reading Time Taken Comments Blood Pressure 110/52 11/20/2023 2:14 PM EDT Pulse 77 03/09/2019 12:00 PM EST Temperature - - Respiratory Rate 16 03/09/2019 12:00 PM EST Oxygen Saturation - - Inhaled Oxygen Concentration - - Weight 68.6 kg (151 lb 3.2 oz) 11/20/2023 2:14 P M EDT Height 160 cm (5' 3 ) 11/20/2023 2:14 PM EDT Body Mass Index 26.78 11/20/2023 2:14 PM EDT Plan of Treatment Health Maintenance Due Date Last Done Comments Colorectal Cancer Screening: Annual FOBT 2001 Colorectal Cancer Screening: Colonoscopy 2001 Colorectal Cancer Screening: Sigmoidoscopy 2001 Diabetes: Ophthalmology Exam 07/20/2019 Diabetes: Pedal Pulse Checked 07/20/2019 Diabetes: Sensory Foot Exam 07/20/2019 Diabetes: Visual Foot Exam 07/20/2019 Pneumococcal Vaccine: 50+ Years (2 of 2 - PCV) 11/02/2022 11/02/2021 Influenza Vaccine (#1) 2024 4, 01/10/2023, 02/01/2021, Additional history exists Diabetes: Hemoglobin A1C 01/21/2025 025, 07/16/2024, 03/31/2024, Additional history exists Pneumococcal Vaccine: Peds (0 to 5 Years) and At-Risk Patients (6 to 49 Years) Discontinued 11/02/2021 Hepatitis B Vaccine Aged Out No longe r eligible based on patient's age to complete this topic Procedures Procedure Name Priority Date/Time Associated Diagnosis Comments HEMOGLOBIN A1C Routine 05/28/2023 3:36 PM EST Chronic kidney disease stage 3B (HCC) Essential hypertension Type 2 diabetes mellitus, not otherwise specified (HCC) Pain in left hip from Last 3 Months or Most Recently Relevant to Health Maintenance Results * (ABNORMAL) Hemoglobin A1c (05/28/2023 3:36 PM EST) Hemoglobin A1C 7.8(H) (4.0-5.6) % [facility] Comment: MONITORING: In known diabetic patients, hemoglobin A1c targets should be discussed with health care provider. DIAGNOSTIC USE: The [place] Diabetes Association (ADA) and the World Health Organization (WHO) recommend the use of HbA1c to diagnose diabetes using a threshold of 6.5%. Patients who have an HbA1c between 5.7% and 6.4% are considered at increased risk for developing diabetes in the future. CAUTION: Falsely low HbA1c results may be observed in patients with hemolytic anemia, homozygous forms of abnormal hemoglobin (e.g. SS, CC, SC), , recent blood loss or hemoglobin F greater than 7%. Fructosamine may be used as an alternate test in these cases. REFERENCE: ADA: Standards of Medical Care in Diabetes 2020, The Journal of Clinical and Applied Research and Education Volume 43, Supplement 1 Testing performed or reported by [facility], a Service of [facility], [address] [place] [id number] Mino Melendrez MD, Network Announcer [facility]# [id number] Blood specimen (specimen) Venous blood / Unknown 05/28/2023 3:36 PM EST 05/28/2023 3:38 PM EST Carmela COATES LAB BLOOD ORDERABLES Final Re sult [facility] from Last 3 Months or Most Recently Relevant to Health Maintenance Insurance Medicaid [place] [facility] ([id number]) Care Teams Chief General Pediatric Clinic Relationship Specialty Start Date End Date Zahira Ngo PA-C [address] [place] [address] PCP - General Physician Tree Fruit And Nut Farming Supervisor 09/23/20
--- OUTSIDE RECORDS SUMMARY | 2025-01-04 20:38 | XMS_ITS | Encounter Summary ---
Author Organization [facility] Address [address] [place] [address] Phone Care Team Providers Care Stone Polisher Hand Name Role Phone Zahira Ngo PA-C Primary Care Provider [phone]- [phone] Encounter Details Date Type Department Care Team (Late st Contact Info) Description 12/26/2021 Documentation Only [facility], [address] [place] [address] Edilberto Ch MD [address] [place] [address] Social History Tobacco Use Types Packs/Day Years Used Date Smoking Tobacco: Former Comments:Smoking History Inf o:Some days Alcohol Use Standard Drinks/Week Comments No 0 (1 standard drink = 0.6 oz pur e alcohol) Sex and Gender Information Value Date Recorded Sex Assigned at Not on file Legal Sex Male 4:34 PM EST Gender Identity Not on file Sexual Orientation Not on file documented as of this encounter Plan of Treatment Not on file documented as of this encounter Visit Diagnoses Not on filedocumented in this encounter Care Teams Stone Polisher Hand Relationship Specialty Start Date End Date Zahira Ngo PA-C [address] [place] [address] PCP - General Physician Culinary Arts Instructor 09/23/20 documented as of this encounter
--- OUTSIDE RECORDS SUMMARY | 2025-01-04 20:38 | XMS_ITS | Encounter Summary ---
Author Organization [facility] Address [address] [place] [address] Phone Care Team Providers Care Director Of Nursing Name Role Phone Zahira Ngo PA-C Primary Care Provider +1- [phone] Encounter Details Date Type Department Care Team (Late st Contact Info) Description 03/27/2023 Orders Only [facility] [place], [address] [place] [address] Carmela Kilpatrick PA [address] [place] [address] Chronic kidney disease stage 3B (HCC); Essential hypertension; Type 2 diabetes mellitus, not otherwise specified (HCC); Pain in left hip Social History Tobacco Use Types Packs/Day Years [...] on file documented as of this encounter Procedures Procedure Name Priority Date/Time Associated Diagnosis Comments IRON PANEL (FE, TIBC, TSAT) Routine 05/28/2023 3:36 PM EST Chronic kidney disease stage 3B (HCC) Essential hypertension Type 2 diabetes mellitus, not otherwise specified (HCC) Pain in left hip PROTEIN / CREATININE RATIO, URINE Routine 05/28/2023 3:36 PM EST Chronic kidney disease stage 3B (HCC) Essential hypertension Type 2 diabetes mellitus, not otherwise specified (HCC) Pain in left hip VITAMIN D 25 HYDROXY Routine 05/28/2023 3:36 PM EST Chronic kidney disease stage 3B (HCC) Essential hypertension Type 2 diabetes mellitus, not otherwise specified (HCC) Pain in left hip URINALYSIS WITH MICROSCOPIC Routine 05/28/2023 3:36 PM EST Chronic kidney disease stage 3B (HCC) Essential hypertension Type 2 diabetes mellitus, not otherwise specified (HCC) Pain in left hip CBC AND DIFFERENTIAL Routine 05/28/2023 3:36 PM EST Chronic kidney disease stage 3B (HCC) Essential hypertension Type 2 diabetes mellitus, not otherwise specified (HCC) Pain in left hip URIC ACID Routine 05/28/2023 3:36 PM EST Chronic kidney disease stage 3B (HCC) Essential hypertension Type 2 diabetes mellitus, not otherwise specified (HCC) Pain in left hip PTH, INTACT Routine 05/28/2023 3:36 PM EST Chronic kidney disease stage 3B (HCC) Essential hypertension Type 2 diabetes mellitus, not otherwise specified (HCC) Pain in left hip HEMOGLOBIN A1C Routine 05/28/2023 3:36 PM EST Chronic kidney disease stage 3B (HCC) Essential hypertension Type 2 diabetes mellitus, not otherwise specified (HCC) Pain in left hip RENAL FUNCTION PANEL Routine 05/28/2023 3:36 PM EST Chronic kidney disease stage 3B (HCC) Essential hypertension Type 2 diabetes mellitus, not otherwise specified (HCC) Pain in left hip documented in this encounter Results * Vitamin D 25 hydroxy (05/28/2023 3:36 PM EST) Vitamin D, 25-Hydroxy 48.2 (20-50) NG/ML [facility] Comment: Testing performed or reported by [facility], a Service of [facility], [address] [place] [address] Mino Melendrez MD, Chart Changer [facility]# [id number] Blood specimen (specimen) Venous blood / Unknown 05/28/2023 3:36 PM EST 05/28/2023 3:39 PM EST Carmela [facility] BLOOD ORDERABLES Final Re sult Performing Organization Address [facility]/ZIP Co de Phone Number [facility] * Urine Protein / creatinine ratio (05/28/2023 3:36 PM EST) Protein/Creatin e Ratio 0.05 (0-0.2) [facility] Protein, Urine 9 MG/DL [facility] Creatinine, Urine 171.5 MG/DL [facility] Comment: Testing performed or reported by [facility], a Service of [facility], [address] [place] [address] Mino Melendrez MD, Chart Changer CLIA# [id number] Urine specimen (specimen) Urine specimen obtained by clean catch procedure / Unknown 05/28/2023 3:36 PM EST 05/28/2023 3:39 PM EST Carmela [facility] URINE ORDERABLES Final Re sult Performing Organization Address [facility] de Phone Number [facility] * Urinalysis with microscopic (05/28/2023 3:36 PM EST) Pathologist [facility] Appearance LIGHT YELLOW [facility] Comment:CLEAR Specific [place] 1.022 (1.002-1. 030) [facility] pH Urine 5.5 (5.0-8.0) [facility] Albumin, Urine NEGATIVE (NEG) [facility] Glucose, Ur NEGATIVE (NEG) [facility] Ketones, Urine NEGATIVE (NEG) [facility] Bilirubin Urine NEGATIVE (NEG) [facility] Hemoglobin Presence in Urine NEGATIVE (NEG) [facility] Nitrite, Urine NEGATIVE (NEG) [facility] Leukocyte Esterase Urine NEGATIVE (NEG) [facility] Urobilinogen Urine NORMAL (NORM) MG/DL [facility] WBC, Urine <1 (0-5) /HPF [facility] RBC, Urine 1 (0-3) /HPF [facility] Mucus, Urine SLIGHT /LPF [facility] Comment: Testing performed or reported by [facility], a Service of [facility], [address] [place] [address] Mino Melendrez MD, Chart Changer CLIA# [id number] Urine specimen (specimen) Urine specimen obtained by clean catch procedure / Unknown 05/28/2023 3:36 PM EST 05/28/2023 3:39 PM EST Carmela [facility] URINE ORDERABLES Final Re sult Performing Organization Address [facility] de Phone Number [facility] * Uric acid (05/28/2023 3:36 PM EST) Uric Acid 6.1 (2.6-8.7) MG/DL [facility] Comment: Testing performed or reported by [facility], [place] [address] Mino Melendrez MD, Chart Changer CLIA# [id number] Blood specimen (specimen) Venous blood / Unknown 05/28/2023 3:36 PM EST 05/28/2023 3:39 PM EST Result [facility] Carmela COATES LAB BLOOD ORDERABLES Final Re sult Performing Organization Address [facility] Phone Number [facility] * (ABNORMAL) PTH, intact (05/28/2023 3:36 PM EST) PTH, Intact 76(H) (15-65) PG/ML [facility] Comment: Testing performed or reported by [facility], a Service of [facility], [address] [place] [address] Mino Melendrez MD, Chart Changer CLIA# [id number] Blood specimen (specimen) Venous blood / Unknown 05/28/2023 3:36 PM EST 05/28/2023 3:38 PM EST Carmela [facility] BLOOD ORDERABLES Final Re sult Performing Organization Address [facility] de Phone Number [facility] * (ABNORMAL) Renal function panel (05/28/2023 3:36 PM EST) Glucose 101(H) (70-99) MG/DL [facility] BUN 33(H) (8-23) MG/DL [facility] Creatinine 1.9(H) (0.7-1.2) MG/DL [facility] Sodium 144 (133-145) MMOL/L [facility] Potassium 5.5(H) (3.6-5.2) MMOL/L [facility] Chloride 109(H) (98-107) MMOL/L [facility] Bicarbonate (CO2) 26 (22-29) MMOL/L [facility] Anion Gap 9 (4-17) [facility] Albumin 4.7 (3.4-4.8) GM/DL [facility] Calcium 9.5 (8.6-10.5) MG/DL [facility] Phosphorus, Serum 3.3 (2.5-4.5) MG/DL [facility] Est GFR Non 38 ML/MIN/1.7 3 M2 [facility] Comment: Creatinine based estimated glomerular filtration (eGFR) in adults is calculated using the National Kidney Foundation recommended 2020 CKD-EPI equation. Estimates GFR from serum creatinine, age and sex. Testing performed or reported by [facility], a Service of [facility], [address] [place] [address] Mion Melendrez MD, Chart Changer CLIA# [id number] Blood specimen (specimen) Venous blood / Unknown 05/28/2023 3:36 PM EST 05/28/2023 3:39 PM EST Carmela [facility] BLOOD ORDERABLES Final Re sult [facility] * (ABNORMAL) Iron Panel (Fe, TIBC, TSAT) (05/28/2023 3:36 PM EST) [facility] Signature Iron 53 (45-160) MCG/DL [facility] UIBC 245 (110-370) MCG/DL [facility] TIBC 298 (155-530) MCG/DL [facility] Iron Saturation (TSat) 18(L) (20-55) % [facility] Comment: Testing performed or reported by [facility], a Service of [address] [address] Mino Melendrez MD, Chart Changer CLIA# [id number] Blood specimen (specimen) Venous blood / Unknown 05/28/2023 3:36 PM EST 05/28/2023 3:39 PM EST Carmela CO[facility] LAB BLOOD ORDERABLES Final Re sult Performing Organization Address [facility] de Phone Number [facility] * (ABNORMAL) Hemoglobin A1c (05/28/2023 3:36 PM EST) Hemoglobin A1C 7.8(H) (4.0-5.6) % [facility] Comment: MONITORING: In known diabetic patients, hemoglobin A1c targets should be discussed with health care provider. DIAGNOSTIC USE: The [place] [employer] (ADA) and the World Health [...] Supplement 1 Testing performed or reported by [facility], a Service of [facility], [address] [place] [address] Mino Melendrez MD, Chart Changer [facility]# [id number] Blood specimen (specimen) Venous blood / Unknown 05/28/2023 3:36 PM EST 05/28/2023 3:38 PM EST Carmela [facility] BLOOD ORDERABLES Final Re sult Performing Organization Address [facility]/ZIP Co de Phone Number [facility] * (ABNORMAL) CBC and differential (05/28/2023 3:36 PM EST) White Blood Cells 8.1 (4.0-11.0) K/MM3 [facility] RBC 4.35(L) (4.70-6.10 ) M/MM3 [facility] Hgb 12.1(L) (13.7-17.1 ) GM/DL [facility] Hematocrit 38.6(L) (40.5-50.0 ) % [facility] MCV 88.7 (80.0-94.0 ) FL [facility] MCH 27.8 (27.0-34.0 ) PG [facility] MCHC 31.3(L) (33.0-37.0 ) g/dL [facility] Platelets 233 (150-460) K/MM3 [facility] RDW-SD 46.3 (<47.0) FL [facility] MPV 11.2 (9.4-12.4) FL [facility] nRBC Count 0.0 #/100 WBC'S [facility] NRBC Absolute 0.0 K/MM3 [facility] Neutrophils Abs Auto 4.1 (1.3-7.0) K/MM3 [facility] Lymphocytes Relative 2.6 (0.8-3.1) K/MM3 [facility] Monocytes 0.9 (0.4-1.3) K/MM3 [facility] Eosinophils Relative 0.4 (0.0-0.4) K/MM3 [facility] Basophil ABS 0.0 (0.0-0.1) K/MM3 [facility] Granulocytes Absolute 0.0 K/MM3 [facility] Neutrophils % Auto 51.2 (44-76) % [facility] Lymphs 32.4 (15-43) % [facility] Monocytes Absolute 11.4(H) (4.5-10.5) % [facility] Eosinophils 4.3 (0-6) % [facility] Basophils Relative 0.5 (0-2) % [facility] Immature Granulocytes 0.2 % [facility] Comment: Testing performed or reported by [facility], a Service of [facility], [address] [place] [address] Mino Melendrez MD, Chart Changer [facility]# [id number] Blood specimen (specimen) Venous blood / Unknown 05/28/2023 3:36 PM EST 05/28/2023 3:38 PM EST us Carmela [facility] BLOOD ORDERABLES Final Re sult [facility] documented in this encounter Visit Diagnoses Diagnosis Chronic kidney disease stage 3B (HCC) Essential hypertension Type 2 diabetes mellitus, not otherwise specified (HCC) Pain in left hip documented in this encounter Care Teams Director Of Nursing Relationship Specialty Start Date End Date Zahira Ngo PA-C [facility] [place] [address] PCP - General Physician Accounts Payable Bookkeeper 09/23/20 documented as of this encounter
--- OUTSIDE RECORDS SUMMARY | 2025-01-04 20:38 | XMS_ITS | Encounter Summary ---
Author Organization [facility] Address [address] [place] [address] Phone Care Team Providers Care Chemical Research Engineer Name Role Phone Zahira Ngo PA-C Primary Care Provider +1- [phone] Encounter Details Date Type Department Care Team (Late st Contact Info) Description 05/25/2022 Documentation Only [facility] [place], [address] [place] [address] Edilberto Ch MD [address] [address] [address] Social History Tobacco Use Types [...] on filedocumented in this encounter Care Teams Chemical Research Engineer Relationship Specialty Start Date End Date Zahira Ngo PA-C [address] [place] [address] PCP - General Physician Operations Manager/Coordinator 09/23/20 documented as of this encounter
--- OUTSIDE RECORDS SUMMARY | 2025-01-04 20:38 | XMS_ITS | Encounter Summary ---
Author Organization [facility] Address [address] [place] [address] Phone Care Team Providers Care Special Event Assistant Name Role Phone Zahira Ngo PA-C Primary Care Provider +1- [phone] Encounter Details Date Type Department Care Team (Late st Contact Info) Description 11/29/2023 Documentation Only [facility] [place], [address] [place] [address] Ale Mendoza [address] [place] [address] Social History Tobacco Use Types Packs/Day Years [...] on filedocumented in this encounter Care Teams Special Event Assistant Relationship Specialty Start Date End Date Zahira Ngo PA-C [address] [place] [address] PCP - General Physician Auto Suspension And Steering Mechanic 09/23/20 documented as of this encounter
--- OUTSIDE RECORDS SUMMARY | 2025-01-04 20:38 | XMS_ITS | Encounter Summary ---
Author Organization [facility] Address [address] [place] [address] Phone Care Team Providers Care Cone Worker Name Role Phone Zahira Ngo PA-C Primary Care Provider +1- [phone] Encounter Details Date Type Department Care Team (Late st Contact Info) Description 11/20/2023 Documentation Only [facility], [address] [place] [address] Ale Mendoza [address] [place] [address] Social History Tobacco Use Types [...] on filedocumented in this encounter Care Teams Cone Worker Relationship Specialty Start Date End Date Zahira Ngo PA-C [address] [place] [address] PCP - General Physician Side Seam Envelope Machine Operator 09/23/20 documented as of this encounter
--- OUTSIDE RECORDS SUMMARY | 2025-01-04 20:38 | XMS_ITS | Encounter Summary ---
Author Organization [facility] Address [address] [place] [address] Phone Care Team Providers Care Glove Tagger Name Role Phone Zahira Ngo PA-C Primary Care Provider +1- [phone] Encounter Details Date Type Department Care Team (Late st Contact Info) Description 10/02/2022 Documentation Only [facility] [place], [address] [place] [address] Carmela Kilpatrick PA [address] [place] [address] Social History Tobacco Use Types Packs/Day Years [...] on filedocumented in this encounter Care Teams Glove Tagger Relationship Specialty Start Date End Date Zahira Ngo PA-C [address] [place] [address] PCP - General Physician Hot Stamp Operator 09/23/20 documented as of this encounter
== END 2025-01-04 21:22 | disposition left against medical advice (07) ==
PROVIDERS: Emergency Provider Emergency Medicine Emergency Medical Services; PCP Physician Assistant
DX: M25.561 Pain in right knee (principal)
CPT/HCPCS: 73562; 99281; 99283

== ENCOUNTER → 2025-01-04 18:05 | Outpatient (BNV) | payer OTHER, SELFPAY | PROVIDERS: Visit Provider Radiology Diagnostic Radiology | DX: M25.561 Pain in right knee (principal) | CPT/HCPCS: 73562 ==